=== PATIENT | female | born 1960 | race Caucasian/White ===

== ENCOUNTER → 2020-04-14 11:07 | Outpatient (BNVA) | payer MEDICARE, MEDICAID, SELFPAY | PROVIDERS: PCP Internal Medicine Geriatric Medicine; Referring Provider Internal Medicine Geriatric Medicine; Visit Provider Nurse Practitioner | DX: Z13.89 Encounter for screening for other disorder (principal) | CPT/HCPCS: Q3014 ==

== ENCOUNTER 2020-06-06 14:21 | Outpatient (REF) | payer OTHER, SELFPAY ==
--- NOTE | ~2020-06-06 | MM_ITS ---
EXAMINATION: MM SCREENING DIGITAL BREAST TOMOSYNTHESIS, BILATERAL CLINICAL INFORMATION: Screening. Asymptomatic. The lifetime risk of breast cancer based on the Tyrer-Cuzick Model is 10%. COMPARISON: Mammography: 03/12/2019, 03/03/2018, 02/20/2017 TECHNIQUE: Digital breast tomosynthesis is performed in both the craniocaudal and mediolateral oblique views along with computer-aided detection (CAD). Synthesized 2D images are generated from the tomosynthesis. FINDINGS: There are scattered areas of fibroglandular density (ACR BI-RADS breast composition Category b). There are no significant masses, abnormal calcifications, or other abnormalities. Parenchymal pattern is similar to prior studies. No developing density. No significant changes. MM/MM tomosynthesis screening BI IMPRESSION: No mammographic evidence of malignancy. ASSESSMENT: BI-RADS 1: Negative RECOMMENDATION: Routine annual mammography screening. This patient's information was entered into a reminder system with a target due date for their next mammogram.
== END 2020-06-06 14:22 | disposition home or self-care (01) ==
LOC: HO.MAMMO 14:21
PROVIDERS: PCP Internal Medicine; Visit Provider Internal Medicine
DX: Z12.31 Encounter for screening mammogram for malignant neoplasm of breast (principal)
CPT/HCPCS: 77063; 77067

== ENCOUNTER 2020-07-13 13:55 | Outpatient (REF) | payer OTHER, SELFPAY ==
--- NOTE | ~2020-07-13 | US_ITS ---
EXAMINATION: US CHEST CLINICAL INFORMATION: Swelling, mass, lump of the trunk. COMPARISON: None. TECHNIQUE: Limited imaging through the left anterolateral chest wall is performed. FINDINGS: Limited imaging to the left anterolateral chest wall was performed that patient feels a lump. On imaging there is no visible soft tissue density similar to fat but no increased vascularity. Similar findings are seen on the contralateral side in the same area along the right anterolateral chest wall. This is most likely a small lipoma or fatty collection. US/US chest IMPRESSION: Possible lesion along the left anterolateral chest wall is most likely a lipoma. Similar findings are seen on the right side as well.
== END 2020-07-13 13:56 | disposition home or self-care (01) ==
LOC: HO.US 13:55
PROVIDERS: Visit Provider Emergency Medicine
DX: Z13.89 Encounter for screening for other disorder (principal)
CPT/HCPCS: 76604

== ENCOUNTER → 2020-11-04 14:01 | Outpatient (BNVA) | payer OTHER, SELFPAY | PROVIDERS: PCP Internal Medicine; Visit Provider Nurse Practitioner | DX: K21.9 Gastro-esophageal reflux disease without esophagitis (principal); K59.00 Constipation, unspecified; R14.0 Abdominal distension (gaseous) | CPT/HCPCS: Q3014 ==

== ENCOUNTER → 2021-05-08 13:56 | Outpatient (BNVA) | payer OTHER, SELFPAY | PROVIDERS: PCP Internal Medicine; Referring Provider Internal Medicine; Visit Provider Nurse Practitioner | DX: K59.00 Constipation, unspecified (principal); K14.0 Glossitis; K21.9 Gastro-esophageal reflux disease without esophagitis | CPT/HCPCS: 99212 ==

== ENCOUNTER 2021-06-13 09:44 | Outpatient (REF) | payer OTHER, SELFPAY ==
--- NOTE | ~2021-06-13 | MM_ITS ---
EXAMINATION: MM SCREENING DIGITAL BREAST TOMOSYNTHESIS, BILATERAL CLINICAL INFORMATION: Screening. Asymptomatic. The lifetime risk of breast cancer based on the Tyrer-Cuzick Model is 10%. COMPARISON: Mammography: 06/06/2020, 03/12/2019, 03/03/2018 TECHNIQUE: Digital breast tomosynthesis is performed in both the craniocaudal and mediolateral oblique views along with computer-aided detection (CAD). Synthesized 2D images are generated from the tomosynthesis. FINDINGS: There are scattered areas of fibroglandular density (ACR BI-RADS breast composition Category b). There are no significant masses, abnormal calcifications, or other abnormalities. There is no architectural abnormality or developing density. The axilla and skin contours are unremarkable. No significant changes from prior studies. MM/MM tomosynthesis screening BI IMPRESSION: No mammographic evidence of malignancy. ASSESSMENT: BI-RADS 1: Negative RECOMMENDATION: Routine annual mammography screening. This patient's information was entered into a reminder system with a target due date for their next mammogram.
== END 2021-06-13 09:45 | disposition home or self-care (01) ==
LOC: HO.MAMMO 09:44
PROVIDERS: PCP Internal Medicine; Visit Provider Internal Medicine
DX: Z12.31 Encounter for screening mammogram for malignant neoplasm of breast (principal)
CPT/HCPCS: 77063; 77067

== ENCOUNTER → 2021-12-13 14:33 | Outpatient (BNVA) | payer OTHER, SELFPAY | PROVIDERS: PCP Internal Medicine; Referring Provider Internal Medicine; Visit Provider Nurse Practitioner | DX: K21.9 Gastro-esophageal reflux disease without esophagitis (principal); K59.00 Constipation, unspecified; R14.0 Abdominal distension (gaseous); E11.9 Type 2 diabetes mellitus without complications; Z79.84 Long term (current) use of oral hypoglycemic drugs | CPT/HCPCS: 99212 ==

== ENCOUNTER 2022-06-27 14:44 | Outpatient (REF) | payer OTHER, SELFPAY ==
--- NOTE | ~2022-06-27 | MM_ITS ---
EXAMINATION: MM SCREENING DIGITAL BREAST TOMOSYNTHESIS, BILATERAL CLINICAL INFORMATION: Screening. Asymptomatic. The lifetime risk of breast cancer based on the Tyrer-Cuzick Model is 9.7%. COMPARISON: Mammography: June 13, 2021 and studies dating back to February 14, 2015 TECHNIQUE: Digital breast tomosynthesis is performed in both the craniocaudal and mediolateral oblique views along with computer-aided detection (CAD). Synthesized 2D images are generated from the tomosynthesis. FINDINGS: There are scattered areas of fibroglandular density (ACR BI-RADS breast composition Category b). There are no significant masses, abnormal calcifications, or other abnormalities. MM/MM tomosynthesis screening BI IMPRESSION: No significant changes ASSESSMENT: BI-RADS 1: Negative RECOMMENDATION: Routine annual mammography screening. This patient's information was entered into a reminder system with a target due date for their next mammogram.
== END 2022-06-27 14:45 | disposition home or self-care (01) ==
LOC: HO.MAMMO 14:44
PROVIDERS: PCP Internal Medicine; Visit Provider Internal Medicine
DX: Z12.31 Encounter for screening mammogram for malignant neoplasm of breast (principal)
CPT/HCPCS: 77063; 77067

== ENCOUNTER → 2022-07-26 13:45 | Outpatient (BNVA) | payer OTHER, SELFPAY | PROVIDERS: PCP Internal Medicine; Visit Provider Nurse Practitioner | DX: K21.9 Gastro-esophageal reflux disease without esophagitis (principal); K59.00 Constipation, unspecified; R14.0 Abdominal distension (gaseous) | CPT/HCPCS: 99212 ==

== ENCOUNTER 2022-11-29 08:56 | Outpatient (REF) | payer OTHER, SELFPAY ==
[2022-11-29 11:21] LABS: MANUAL DIFF FLAG NO
[2022-11-29 12:01] LABS: Basophils Absolute Auto 0.1 X10*3/uL (0.0-0.2); Basophils Percent Auto 0.9 % (0-2); Eosinophils Absolute Auto 0.1 X10*3/uL (0.0-0.4); Eosinophils Percent Auto 1.7 % (0-4); Hematocrit 37.5 % (37.0-47.0); Hemoglobin 12.4 g/dl (12.0-16.0); Imm Gran Abs Auto 0.01 X10*3/uL (0.00-0.03); Imm Gran Pct Auto 0.2 % (0.0-0.4); Lymphocytes Absolute Auto 1.2 X10*3/uL (1.2-4.9); Lymphocytes Percent Auto 23.4 % (20-40); Mean Corpuscular HGB Conc 33.1 g/dl (31.0-35.0); Mean Corpuscular Hemoglobin 31.2 pg (27.0-33.0); Mean Corpuscular Volume 94.2 fL (80.0-98.0); Mean Platelet Volume 9.4 fL (9.4-12.3); Monocytes Absolute Auto 0.4 X10*3/uL (0.1-1.2); Monocytes Percent Auto 7.2 % (2-11); Neutrophils Absolute Auto 3.5 x10*3/uL (2.0-8.3); Neutrophils Percent Auto 66.6 % (45-73); Platelet Count 288 X10*3/uL (160-400); Red Blood Count 3.98 X10*6/uL (4.20-5.50); Red Cell Distribution Width 13.2 % (11.0-16.0); White Blood Count 5.3 X10*3/uL (4.8-10.8)
[2022-11-29 12:08] LABS: Estimated Average Glucose 117 mg/dL; Hemoglobin A1c % 5.7 %
[2022-11-29 12:38] LABS: Alanine Aminotransferase 12 U/L (0-31); Albumin Level 4.3 g/dL (3.5-5.0); Alkaline Phosphatase 73 U/L (39-117); Anion Gap 12 (12-20); Aspartate Amino Transferase 13 U/L (5-31); Bilirubin Direct 0.1 mg/dL (0.0-0.5); Bilirubin Total 0.3 mg/dL (0.0-1.0); Blood Urea Nitrogen 14 mg/dL (9-16); Calcium 9.7 mg/dL (8.4-10.2); Carbon Dioxide 27 mmol/L (22-29); Chloride 107 mmol/L (96-108); Cholesterol 185 mg/dL; Estimated Glomerular Filt Rate > 60; Glucose Random 97 mg/dL (60-115); HDL Cholesterol 71 mg/dL; LDL Cholesterol Calculated 99 mg/dl; Potassium 4.3 mmol/L (3.3-5.1); Sodium 142 mmol/L (135-145); Total Protein 7.6 g/dL (6.5-8.0); Triglycerides 75 mg/dL
== END 2022-11-29 08:57 | disposition home or self-care (01) ==
LOC: HO.HHCL 08:56
PROVIDERS: Visit Provider Internal Medicine
DX: R73.03 Prediabetes (principal); K21.9 Gastro-esophageal reflux disease without esophagitis; E55.9 Vitamin D deficiency, unspecified; Z00.00 Encounter for general adult medical examination without abnormal findings
CPT/HCPCS: 36415; 80048; 80061; 80076; 83036; 85025

== ENCOUNTER 2022-12-06 14:50 | Outpatient (REF) | payer OTHER, SELFPAY ==
--- NOTE | ~2022-12-06 | XR_ITS ---
EXAMINATION: XR KNEE, RIGHT CLINICAL INFORMATION: Pain COMPARISON: None available. TECHNIQUE: Four views of the right knee. FINDINGS: No fracture or joint effusion. Alignment is anatomic. Joint spaces are maintained. No abnormal soft tissue calcification. XR/XR knee RT 3V IMPRESSION: Normal right knee.
== END 2022-12-06 14:51 | disposition home or self-care (01) ==
LOC: HO.HHCX 14:50
PROVIDERS: Visit Provider Internal Medicine
DX: M25.561 Pain in right knee (principal); G89.29 Other chronic pain
CPT/HCPCS: 73562

== ENCOUNTER 2023-03-29 14:11 | Outpatient (AMB) | payer OTHER, SELFPAY ==
--- NOTE | 2023-03-29 14:15 | A.OFFVIS_ITS ---
Intake Vital Signs 03/29/23 14:34 Height 5 ft 7 in Weight 171 lb 1.259 oz BMI 26.8 BP 128/62 Blood Pressure Location Rt brachial Position Sitting Pulse 77 Intake Visit Reasons: 6 month follow up Gerd, IBS Intake Note: Patient presents to in office 6 months follow up of GERD and IBS. CC: Patient reports having occasional constipation, and feeling the same. Denies any new GI symptoms or concerns. [employer] Required: Yes Accompanied by: Self / Same As Patient Allergies No Known Allergies [No Known Allergies*] Allergy (Verified 07/26/22 14:09) HPI 6 month follow up Gerd, IBS HPI Details Assessment & Plan (1) GERD (gastroesophageal reflux diseas e): Code(s): K21.9 - Gastro-esophageal reflux disease without esophagitis Plan: Candy #Sheila hendrickson She continues to do well on her famotidine, simethicone and bisacodyl. She is uncertain how her new diagnosis of diabetes is going because she has not followed up yet to find out what her lab results are. She feels that she is doing well with diet and exercise, however. She has no new medical conditions to report. Return office visit in 6 months (2) Constipation: Code(s): K59.00 - Constipation, unspecified (3) Abdominal bloating: Code(s): R14.0 - Abdominal distension (gaseous) Medications: Refilled bisacodyl (Dulcola x (bisacodyl)) 10 mg (2 x 5 mg) P O BEDTIME 30 days 60 tabs 6RF K21.9 - Gastro-eso phageal reflux dis ease without esoph agitis, K59.00 - C onstipation, unspe cified famotidine 20 mg PO DAILY 30 days 30 tabs 6RF K21.9 - Gastro-eso phageal reflux dis ease without esoph agitis simethicone aft er meals 180 mg PO QID 30 days 120 caps 6RF R14.0 - Abdominal distension (gaseou s) TODAY'S VISIT [facility] #[id number] She continues to do well on her famotidine, simethicone and bisacodyl. At time she has no complaints and is happy with her GI regimen. Return office visit in 6 months [facility] Surgical History Hx of colonoscopy Hx of tonsillectomy Family History Father Family hx of prostate cancer Hx of cardiac arrest Mother Hx of primary hypertension Social History Alcohol intake: current Alcohol intake frequency: holidays/special occasions only Alcohol type: wine Patient Tobacco Use Status: Never used Tobacco Review of Systems Const Denies fatigue, Denies fever(s), Denies night sweats, Denies poor appetite and Denies weight loss ENT Reports Normal hearing present, Denies dental pain, Denies dysphagia, Denies hearing loss, Denies mouth pain, Denies odynophagia, Denies throat swelling, Denies tongue swelling and Reports other (Dentition adequate) Card Reports no additional complaints Resp Reports no additional complaints GI Denies abdominal pain, Denies melena, Denies bloating, Denies hematochezia, Reports constipation, Denies GI cramping, Denies dysphagia, Denies excessive flatus, Denies early satiety, Reports heartburn, Denies diarrhea, Denies nausea, Denies odynophagia, Denies vomiting and Denies hematemesis Skin/Breast Denies pruritus, Denies lesions, Denies rash and Denies jaundice Neuro Reports Normal hearing present and Denies Abnormal speech present Endo Denies fatigue Aller/Immun Denies throat swelling and Denies tongue swelling Physical Exam Vital Signs: Last Vital Signs Pulse 77 03/29/23 14:34 BP 128/62 03/29/23 14:34 BMI result Body Mass Index 26.8 Const General: cooperative, no acute distress, well developed and well groomed Nutritional Appearance: average body habitus and well nourished Orientation/consciousness: oriented to person, oriented to place and oriented to time Limitations: language barrier HEENT Head: Yes normocephalic and Yes atraumatic Eyes General: appearance normal, both eyes and all related structures Pupils: Equal, round and reactive pupils present Neck Neck: Yes normal visual inspection and Yes no lymphadenopathy Thyroid: Thyroid normal Resp Effort & Inspection: normal respiratory effort and able to speak in complete sentences Auscultation: clear to auscultation bilaterally Cardio Rate: regular rate Rhythm: regular rhythm Heart sounds: Normal, physiologic split S2 sound present Peripheral pulses: radial pulses present and posterior tibial pulses present GI Inspection: No distended and No Abdominal panniculus present Palpation (GI): Soft to palpation, nontender, no guarding, not rigid and No hepatosplenomegaly present Percussion: Yes normal to percussion Auscultation: normal bowel sounds Rectal Exam - Female: deferred Skin General skin exam: no rashes or lesions noted, turgor normal, skin not dry, no jaundice, No spider nevi and no striae Rashes: no rashes Nails: normal Neuro General: oriented to person, oriented to place and oriented to time Cranial nerves: Yes Equal, round and reactive pupils present and Yes Normal hearing present Speech: No Abnormal speech present Extrem General: Yes normal to inspection, No clubbing, No cyanosis and No edema Psych Appearance: grossly normal and well kempt Mental Status: mental status grossly normal Speech and movement: Normal speech and movement present Affect: normal affect Attitude: cooperative Thought process: Normal thought process present and not confabulating Thought content: Normal thought content present Insight: Fair insight present (Psych) Judgement: Fair judgement present (Psych) Assessment & Plan Assessment & Plan (1) GERD (gastroesophageal reflux disease): Code(s): K21.9 - Gastro-esophageal reflux disease without esophagitis (2) Constipation: Code(s): K59.00 - Constipation, unspecified (3) Abdominal bloating: Code(s): R14.0 - Abdominal distension (gaseous) Plan [facility] #[id number] She continues to do well on her famotidine, simethicone and bisacodyl. At time she has no complaints and is happy with her GI regimen. Return office visit in 6 months Medications: Refilled simethicone after meals 180 mg PO QID 30 days 120 caps 6RF R14.0 - Abdominal distension (gaseous) famotidine 20 mg PO DAILY 30 days 30 tabs 6RF K21.9 - Gastro-esophageal reflux disease without esophagitis bisacodyl (Dulcolax (bisacodyl)) 10 mg (2 x 5 mg) PO BEDTIME 30 days 60 tabs 6RF K21.9 - Gastro-esophageal reflux disease without esophagitis, K59.00 - Constipation, unspecified Coding Level of Care Code Est Pt Level 3 (78372) Diagnoses GERD (gastroesophageal reflux disease) K21.9 Constipation K59.00 Abdominal bloating R14.0
[2023-03-29 14:34] VITALS: BP 128/62; PULSE 77; BMI 26.8
== END 2023-03-29 15:06 | disposition home or self-care (01) ==
PROVIDERS: Visit Provider Nurse Practitioner
DX: K21.9 Gastro-esophageal reflux disease without esophagitis (principal); K59.00 Constipation, unspecified; R14.0 Abdominal distension (gaseous)
CPT/HCPCS: 99213

== ENCOUNTER → 2023-03-29 14:11 | Outpatient (BNVA) | payer OTHER, SELFPAY | PROVIDERS: Visit Provider Nurse Practitioner | DX: K21.9 Gastro-esophageal reflux disease without esophagitis (principal); K59.00 Constipation, unspecified; R14.0 Abdominal distension (gaseous) | CPT/HCPCS: 99212 ==

== ENCOUNTER 2023-07-03 08:13 | Outpatient (REF) | payer OTHER, SELFPAY | END 2023-07-03 08:14 | disposition home or self-care (01) | LOC: HO.MAMMO 08:13 | PROVIDERS: PCP Internal Medicine; Visit Provider Internal Medicine | DX: Z12.31 Encounter for screening mammogram for malignant neoplasm of breast (principal) | CPT/HCPCS: 77063; 77067 ==

== ENCOUNTER → 2023-07-03 08:30 | Outpatient (BNV) | payer OTHER, SELFPAY | PROVIDERS: PCP Internal Medicine; Visit Provider Radiology Diagnostic Radiology | DX: Z12.31 Encounter for screening mammogram for malignant neoplasm of breast (principal) | CPT/HCPCS: 77063; 77067 ==

== ENCOUNTER 2023-09-27 14:54 | Outpatient (AMB) | payer OTHER, SELFPAY ==
--- NOTE | 2023-09-27 14:56 | A.OFFVIS_ITS ---
Vital Signs 09/27/23 15:03 Height 5 ft 7 in Weight 173 lb 4.533 oz BMI 27.1 BP 114/60 Blood Pressure Location Lt brachial Position Sitting Pulse 86 Pulse Source Pulse Oximeter Pulse Oximetry (%) 96 Oxygen Delivery Method Room Air Intake Visit Reasons: GERD, CIC - 6 month f/u Intake Note: Pamela presents in office today for a 6 mos scheduled FUV. CC: Pt reports that they are feeling OK, pt denies any new concerns or sx. Pt does report however that they are still experiencing some of their chronic sx. Pt is unable to elaborate further on this at this time. Oil Transport Driver Required: Yes Oil Transport Driver Name: [id number] Rosy Allergies No Known Allergies [No Known Allergies*] Allergy (Verified 09/27/23 15:03) HPI HPI GERD, CIC - 6 month f/u: Details: Assessment & Plan (1) GERD (gastroesophageal reflux disease): Code(s): K21.9 - Gastro-esophageal reflux disease without esophagitis (2) Constipation: Code(s): K59.00 - Constipation, unspecified (3) Abdominal bloating: Code(s): R14.0 - Abdominal distension (gaseous) Plan [facility] #[id number] She continues to do well on her famotidine, simethicone and bisacodyl. At time she has no complaints and is happy with her GI regimen. Return office visit in 6 months Medications: Refilled simethicone after meals 180 mg PO QID 30 days 120 caps 6RF R14.0 - Abdominal distension (gaseous) famotidine 20 mg PO DAILY 30 days 30 tabs 6RF K21.9 - Gastro-esophageal reflux disease without esophagitis bisacodyl (Dulcolax (bisacodyl)) 10 mg (2 x 5 mg) PO BEDTIME 30 days 60 tabs 6RF K21.9 - Gastro-esophageal reflux disease without esophagitis, K59.00 - Constipation, unspecified TODAY'S VISIT [facility] #[facility] Live She continues to do well on her famotidine, simethicone and bisacodyl. At time she has no complaints and is happy with her GI regimen. Return office visit in 6 month [facility] Surgical History (Updated 09/27/23 @ 15:12 by JOYCELYN Mccray) Hx of colonoscopy Hx of tonsillectomy Family History Father Family hx of prostate cancer Hx of cardiac arrest Mother Hx of primary hypertension Social History Alcohol intake: current Alcohol intake frequency: holidays/special occasions only Alcohol type: wine Patient Tobacco Use Status: Never used Tobacco Review of Systems Const Denies fatigue, Denies fever(s), Denies night sweats, Denies poor appetite and Denies weight loss Eyes Details: glasses Reports requires corrective lenses ENT Reports Normal hearing present, Denies dental pain, Denies dysphagia, Denies hearing loss, Denies mouth pain, Denies odynophagia, Denies throat swelling, Denies tongue swelling and Reports other (Dentition adequate) Card Reports no additional complaints Resp Reports no additional complaints GI Details: Denies abdominal pain, Denies melena, Reports bloating, Denies hematochezia, Reports constipation, Denies GI cramping, Denies dysphagia, Denies excessive flatus, Denies early satiety, Reports heartburn, Denies diarrhea, Denies nausea, Denies odynophagia, Denies vomiting and Denies hematemesis Skin/Breast Denies pruritus, Denies lesions, Denies rash and Denies jaundice Neuro Reports Normal hearing present and Denies Abnormal speech present Endo Denies fatigue Aller/Immun Denies throat swelling and Denies tongue swelling Physical Exam Vital Signs: Last Vital Signs Pulse 86 09/27/23 15:03 BP 114/60 09/27/23 15:03 Pulse Ox 96 09/27/23 15:03 Oxygen Delivery Method Room Air 09/27/23 15:03 BMI result Body Mass Index 27.1 Const General: cooperative, no acute distress, well developed and well groomed Nutritional Appearance: average body habitus and well nourished Orientation/consciousness: oriented to person, oriented to place and oriented to time Limitations: language barrier HEENT Head: Yes normocephalic and Yes atraumatic Eyes General: appearance normal, both eyes and all related structures Pupils: Equal, round and reactive pupils present Neck Neck: Yes normal visual inspection and Yes no lymphadenopathy Thyroid: Thyroid normal Resp Effort & Inspection: normal respiratory effort and able to speak in complete sentences Auscultation: clear to auscultation bilaterally Cardio Rate: regular rate Rhythm: regular rhythm Heart sounds: Normal, physiologic split S2 sound present Peripheral pulses: radial pulses present and posterior tibial pulses present GI Inspection: No distended and No Abdominal panniculus present Palpation (GI): Soft to palpation, nontender, no guarding, not rigid and No hepatosplenomegaly present Percussion: Yes normal to percussion Auscultation: normal bowel sounds Rectal Exam - Female: deferred Skin General skin exam: no rashes or lesions noted, turgor normal, skin not dry, no jaundice, No spider nevi and no striae Rashes: no rashes Nails: normal Neuro General: oriented to person, oriented to place and oriented to time Cranial nerves: Yes Equal, round and reactive pupils present and Yes Normal hearing present Speech: No Abnormal speech present Extrem General: Yes normal to inspection, No clubbing, No cyanosis and No edema Psych Appearance: grossly normal and well kempt Mental Status: mental status grossly normal Speech and movement: Normal speech and movement present Affect: normal affect Attitude: cooperative Thought process: Normal thought process present and not confabulating Thought content: Normal thought content present Insight: Fair insight present (Psych) Judgement: Fair judgement present (Psych) Assessment & Plan Assessment & Plan (1) GERD (gastroesophageal reflux disease): Code(s): K21.9 - Gastro-esophageal reflux disease without esophagitis Category: Medical (2) Constipation: Code(s): K59.00 - Constipation, unspecified Category: Medical (3) Abdominal bloating: Code(s): R14.0 - Abdominal distension (gaseous) Category: Medical Plan [facility] #[facility] Live She continues to do well on her famotidine, simethicone and bisacodyl. At time she has no complaints and is happy with her GI regimen. Return office visit in 6 month Coding Level of Care Code Est Pt Level 3 (66629) Diagnoses GERD (gastroesophageal reflux disease) K21.9 Constipation K59.00 Abdominal bloating R14.0
[2023-09-27 15:03] VITALS: BP 114/60; PULSE 86; O2SAT 96; BMI 27.1
== END 2023-09-27 15:18 | disposition home or self-care (01) ==
PROVIDERS: PCP Internal Medicine; Visit Provider Nurse Practitioner
DX: K21.9 Gastro-esophageal reflux disease without esophagitis (principal); K59.00 Constipation, unspecified; R14.0 Abdominal distension (gaseous)
CPT/HCPCS: 99213

== ENCOUNTER → 2023-09-27 14:54 | Outpatient (BNVA) | payer OTHER, SELFPAY | PROVIDERS: PCP Internal Medicine; Visit Provider Nurse Practitioner | DX: K21.9 Gastro-esophageal reflux disease without esophagitis (principal); K59.04 Chronic idiopathic constipation; R14.0 Abdominal distension (gaseous) | CPT/HCPCS: 99212 ==

== ENCOUNTER 2024-06-03 11:48 | Outpatient (REF) | payer OTHER, SELFPAY ==
--- OUTSIDE RECORDS SUMMARY | 2024-06-03 13:40 | XMS_ITS | Encounter Summary ---
Author Organization [employer] [facility] Address [address] [place] [address] Care Team Providers Care Legal Analyst Name Role Phone Deepti Lowry MD Primary Care Provide r Encounter Details Date Type Department Care Team (Latest Contact Info) Description 10/01/2018 Abstract [facility] CONVERSIONS Dental, Provider, DDS Social History Tobacco Use Types Packs/Day Years Used Date Smoking Tobacco: Never Assessed Comments Unknown Sex and Gender Information Value Date Recorded Sex Assigned at Female 02/19/2022 10:32 AM EDT Legal Sex Female 10:32 AM EDT Gender Identity Female 02/19/2022 10:32 AM EDT Sexual Orientation Straight 02/19/2022 10 :32 AM EDT documented as of this encounter Plan of Treatment Upcoming Encounters Date Type Department Care Team (Late st Contact Info) Description 06/11/2024 11:00 AM EST Office Visit [facility] OPTOMETRY [address] [place], [place] [phone] Kenyatta Mitchell, OD [address] [place] [address] 09/23/2024 10:00 AM EDT Office Visit [facility] [address] [place], [place] [phone] Kiet Sarah [address] [place], [place] [phone] documented as of this encounter Visit Diagnoses Not on filedocumented in this encounter Care Teams Legal Analyst Relationship Specialty Start Date End Date Deepti Lowry MD [address] [place] [address] PCP - General Family Medicine 07/25/20 documented as of this encounter
--- OUTSIDE RECORDS SUMMARY | 2024-06-03 13:40 | XMS_ITS | Encounter Summary ---
Author Organization [employer] Address [address] [place] [address] Care Team Providers Care Assisted Living Care Manager Name Role Phone Deepti Lowry MD Primary Care Provide r Reason for Visit * Reason Comments Med Refill Encounter Details Date Type Department Care Team ([facility] st Contact Info) Description 01/06/2024 Refill [facility] MEDICINE [address], [place] [phone] Deepti Lowry MD [address] [place], [place] [phone] Mild depression Social History Tobacco Use Types Packs/Day Years Used Date Smoking Tobacco: Never Passive Smoke Exposure: Never Smokeless Tobacco: Never Depression Answer Date Recorded Patient Health Questionnaire-9 Score 6 12/06/2022 Housing Stability Answer Date Recorded What is your housing situation today? I have tammie ochoa 02/18/[address] you li ve. Do you have problems with any of the following? None of the above 02/18/2023 Food Insecurity Answer Date Recorded Within the past 12 months, y ou worried that your food would run out before you got money to buy more: Never True 02/18/2023 Within the past 12 months,th e food you bought just didn't last and you didn't have enough money to get more: Never True Transportation Answer Date Recorded In the past 12 months, has l ack of transportation kept you from medical appts, meetings, work or from getting things needed for daily living? No 02/18/2023 Utilities Answer Date Recorded In the past 12 months, has t he electric, gas, oil or water company threatened to shut off services in your home? No 02/18/2023 Depression Answer Date Recorded Patient Health Questionnaire-2 Score 2 12/06/2022 Comments Unknown Sex and Gender Information Value [...] Description 06/11/2024 11:00 AM EST Office Visit [facility] OPTOMETRY [address] [place], [place] [phone] StephenKenyatta beck, OD [address] [place] [address] 09/23/2024 10:00 AM EDT Office Visit [facility] [address] [place] [address] Kiet Sarah [address] [place] [address] documented as of this encounter Visit Diagnoses Diagnosis Mild depression Depressive disorder, not elsewhere classified documented in this encounter Additional Health Concerns Assessment Noted Time PHQ-9 Depression Total Score: 6 12/07/19 23 1:23 PM EDT documented as of this encounter Care Teams Assisted Living Care Manager Relationship Specialty Start Date End Date Deepti Lowry MD [address] [place] [address] PCP - General Family Medicine 07/25/20 documented as of this encounter
--- OUTSIDE RECORDS SUMMARY | 2024-06-03 13:40 | XMS_ITS | Encounter Summary ---
Author Organization [employer] [facility] Address [address] [place] [address] Care Team Providers Care Bin Cleaner Name Role Phone Deepti Lowry MD Primary Care Provide r Encounter Details Date Type Department Care Team (Latest Contact Info) Description 03/03/2021 Abstract [facility] CONVERSIONS Dental, Provider, DDS Social History [...] Description 06/11/2024 11:00 AM EST Office Visit [facility] OPTOMETRY [address] [place], [place] [phone] Kenyatta Mitchell, OD [address] [place] [address] 09/23/2024 10:00 AM EDT Office Visit [facility] [address] [place], [place] [phone] Narciso Santaine [address] [place], [place] [phone] documented as of this encounter Visit Diagnoses Not on filedocumented in this encounter Care Teams Bin Cleaner Relationship Specialty Start Date End Date Deepti Lowry MD [address] [place] [address] PCP - General Family Medicine 07/25/20 documented as of this encounter
--- OUTSIDE RECORDS SUMMARY | 2024-06-03 13:40 | XMS_ITS | Encounter Summary ---
Author Organization [employer] Address [address] [place] [address] Care Team Providers Care Chemical Machine Tender Name Role Phone Deepti Lowry MD Primary Care Provide r Reason for Visit * Reason Onset Date Comments Chart Prep 05/27/2024 Encounter Details Date Type Department Care Team ([facility] st Contact Info) Description 05/27/2024 Telephone [facility] [address] [place], [place] [phone] Loly Calvillo MA Chart Prep Social History Tobacco Use Types Packs/Day Years Used Date Smoking Tobacco: Never Passive Smoke Exposure: Never Smokeless Tobacco: Never Alcohol Use Standard Drinks/Week Comments Never 0 (1 standard drink = 0.6 oz pur e alcohol) Depression Answer Date Recorded Patient Health Questionnaire-9 Score 6 12/06/2022 Housing Stability Answer Date Recorded What is your housing situation today? I have tammiekarson ochoa 02/18/[address] you [...] Answer Date Recorded Patient Health Questionnaire-2 Score 3 02/25/2024 Comments Unknown Sex and Gender Information Value Date Recorded Sex Assigned at Female 02/19/2022 10:32 AM EDT Legal Sex Female 10:32 AM EDT Gender Identity Female 02/19/2022 10:32 AM EDT Sexual Orientation Straight 02/19/2022 10 :32 AM EDT documented as of this encounter Miscellaneous Notes * Telephone Encounter - Loly Calvillo MA - 05/27/2024 1:40 PM EST Chart Prep Labs: done Images: done Vaccines due: yes Referrals: pending appt Screenings: mammogram Overdue care gaps: Sbirt, TODD-7 documented in this encounter Plan of Treatment Upcoming Encounters Date Type Department Care Team (Late st Contact Info) Description 06/11/2024 11:00 AM EST Office Visit [facility] [address] [place] [address] Stephen, Kenyatta, OD [address] [place] [address] 09/23/2024 10:00 AM EDT Office Visit [facility] [address] [place], [place] [phone] Kiet Sarah [address] [place] [address] documented as of this encounter Visit Diagnoses Not on filedocumented in this encounter Additional Health Concerns Assessment Noted Time PHQ-9 Depression Total Score: 6 12/07/19 23 1:23 PM EDT documented as of this encounter Care Teams Chemical Machine Tender Relationship Specialty Start Date End Date Deepti Lowry MD [address] [place] [address] PCP - General Family Medicine 07/25/20 documented as of this encounter
--- OUTSIDE RECORDS SUMMARY | 2024-06-03 13:40 | XMS_ITS | Encounter Summary ---
Author Organization [employer] Address [address] [place] [address] Care Team Providers Care Ruling Machine Feeder Name Role Phone Deepti Lowry MD Primary Care Provide r Reason for Visit * Reason Comments Scaling And Root Planing Encounter Details Date Type Department Care Team (Late st Contact Info) Description 05/27/2024 2:00 PM EST Office Visit [facility] [address] [place], [place] [phone] Sarah Santa [address] [place], [place] [phone] Social History Tobacco Use Types Packs/Day Years [...] t he electric, gas, oil or water wooju threatened to shut off services in your home? No 02/18/2023 Depression Answer Date Recorded Patient Health Questionnaire-2 Score 3 02/25/2024 Comments Unknown Sex and Gender Information Value Date Recorded Sex Assigned at Female 02/19/2022 10:32 AM EDT Legal Sex Female 10:32 AM EDT Gender Identity Female 02/19/2022 10:32 AM EDT Sexual Orientation Straight 02/19/2022 10 :32 AM EDT documented as of this encounter Last Filed Vital Signs Vital Sign Reading Time Taken Comments Blood Pressure 116/62 05/27/2024 2:03 PM EST Pulse 79 05/27/2024 2:03 PM EST Temperature - - Respiratory Rate - - Oxygen Saturation - - Inhaled Oxygen Concentration - - Weight - - Height - - Body Mass Index - - documented in this encounter Progress Notes * Sarah Santa - 05/27/2024 2:00 PM EST Patient ID: Pamela Chávez is a 64 y.o. female. Time Out: Date: 05/27/2024 Location: [facility]: UL/LL Procedure: Scaling and Root Planing Verified the above with patient, accounting manager assistant controller, and provider. Confirmed via patient's chart, intraorally and by radiographs. Barrel Washer Machine: not applicable Treatment Provided Dental procedures in this visit D4341 - PERIODONTAL SCALING AND ROOT PLANING - 4 OR MORE TEETH PER QUADRANT UL (Completed) Service provider: Sarah Vernon provider: Vlad Sotelo DDS D4341 - PERIODONTAL SCALING AND ROOT PLANING - 4 OR MORE TEETH PER QUADRANT LL (Completed) Service provider: Sarah Vernon provider: Vlad Sotelo DDS D9450 - ADJUNCTIVE GENERAL SERVICES - PROFESSIONAL VISITS - CASE PRESENTATION, SUBSEQUENT TO DETAILED AND EXTENSIVE TREATMENT PLANNING (Completed) Service provider: Sarah Vernon provider: Vlad Sotelo DDS Instruments Used: Ultrasonic Scalers and Hand Scalers Calculus: Light-mod Plaque: Light Stain: Light Bleeding: Moderate Gingiva: inflamed OH: Fair OCS: neg findings HNE: neg findings Oral hygiene instructions provided to patient including brushing technique and flossing. Recommendations: Floss daily Recall Frequency: 6 mo NV: Hygienist: Sarah Santa RD documented in this encounter Plan of Treatment Upcoming Encounters Date Type Department Care Team (Late st Contact Info) Description 06/11/2024 11:00 AM EST Office Visit [facility] OPT[facility] [address] [place] [address] Tsephen, Kenyatta, OD [address] [place] [address] 09/23/2024 10:00 AM EDT Office Visit [facility] [address] [place] [phone] Sarah Santa [address] [place], [place] [phone] documented as of this encounter Procedures Procedure Name Priority Date/Time Associated Diagnosis Comments LL PERIODONTAL SCALING AND ROOT PLANING - 4 OR MORE TEETH PER QUADRANT Routine 05/27/2024 2:00 PM EST UL PERIODONTAL SCALING AND ROOT PLANING - 4 OR MORE TEETH PER QUADRANT Routine 05/27/2024 2:00 PM EST ADJUNCTIVE GENERAL SERVICES - PROFESSIONAL VISITS - CASE PRESENTATION, SUBSEQUENT TO DETAILED AND EXTENSIVE TREATMENT PLANNING Routine 05/27/2024 2:00 PM EST documented in this encounter Visit Diagnoses Not on filedocumented in this encounter Additional Health Concerns Assessment Noted Time PHQ-9 Depression Total Score: 6 12/07/19 23 1:23 PM EDT documented as of this encounter Care Teams Ruling Machine Feeder Relationship Specialty Start Date End Date Deepti Lowry MD [address] [place] [address] PCP - General Family Medicine 07/25/20 documented as of this encounter
--- OUTSIDE RECORDS SUMMARY | 2024-06-03 13:40 | XMS_ITS | Encounter Summary ---
Author Organization [employer] Address [address] [place] [address] Care Team Providers Care Immigration Manager Name Role Phone Deepti Lowry MD Primary Care Provide r Reason for Visit * Reason Onset Date Comments r\s due to weather 05/27/2024 Encounter Details Date Type Department Care Team (Late st Contact Info) Description 05/27/2024 Telephone [facility] [address] [place] [address] Loly Calvillo MA r\s due to weather Social History Tobacco Use Types Packs/Day Years Used Date Smoking Tobacco: Never Passive Smoke Exposure: Never Smokeless Tobacco: Never Alcohol Use Standard Drinks/Week Comments Never 0 (1 standard drink = 0.6 oz pur e alcohol) Depression Answer Date Recorded Patient Health Questionnaire-9 Score 6 12/06/2022 Housing Stability Answer Date Recorded What is your housing situation today? I have tammie ocoha 02/18/[address] you li [...] Encounter - Loly Calvillo MA - 05/27/2024 2:05 PM EST TC- Patient to r\s appt for 05/28/2024 left a voice message informing patient her appt needs to be r\s due to weather. documented in this encounter Plan of Treatment Upcoming Encounters Date Type Department Care Team (Late st Contact Info) Description 06/11/2024 11:00 AM EST Office Visit [facility] OPT[facility] [address] [place] [address] Stephen, Kenyatta, OD [address] [place] [address] 09/23/2024 10:00 AM EDT Office Visit [facility] [address] [place], [place] [phone] Sarah Santa [address] [place] [address] documented as of this encounter Visit Diagnoses Not on filedocumented in this encounter Additional Health Concerns Assessment Noted Time PHQ-9 Depression Total Score: 6 12/07/19 23 1:23 PM EDT documented as of this encounter Care Teams Immigration Manager Relationship Specialty Start Date End Date Deepti Lowry MD [address] [place] [address] PCP - General Family Medicine 07/25/20 documented as of this encounter
--- OUTSIDE RECORDS SUMMARY | 2024-06-03 13:40 | XMS_ITS | Clinical Summary ---
Author Organization [employer] Address [address] [place] [address] Care Team Providers Care Marine Photographer Name Role Phone Deepit Lowry MD Primary Care Provide r Allergies No known active allergies Medications chlorhexidine (Peridex) 0.12 % solution place 1/2 oz in mouth swish for 30 seconds then spit out 2 times per day 06/17/19 20 Active triamcinolone (Kenalog) 0.1 % cream Apply topically every 12 (twelve) hours. 12/09/19 21 Active cholecalciferol (Vitamin D-3) 25 MCG (1000 UT) capsule Take 1 capsule by mouth at bed time. 11/11/19 21 Active Bisacodyl EC 5 MG EC tablet Take 10 mg by mouth at bedtime. 07/27/19 23 Active cetirizine (ZyrTEC) 10 MG tabletIndicatio ns:Seasonal allergies Take 1 tablet (10 mg) by mouth at bedtime. 30 tablet 1 09/18/19 24 Active Simethicone Ultra Strength 180 MG capsuleIndicati ons:Gastroesoph ageal reflux disease, unspecified whether esophagitis present TAKE 1 CAPSULE BY MOUTH FOUR TIMES DAILY AFTER MEALS 90 capsule 2 09/18/19 24 Active metFORMIN (Glucophage) 500 MG tabletIndicatio ns:Prediabetes Take 1 tablet (500 mg) by mouth with breakfast and with evening meal. 180 tablet 2 02/25/20 24 Active famotidine (Pepcid) 20 MG tabletIndicatio ns:Gastroesopha geal reflux disease, unspecified whether esophagitis present Take 1 tablet (20 mg) by mouth Once per day. 60 tablet 3 05/29/19 25 Active sertraline (Zoloft) 25 MG tabletIndicatio ns:Mild depression TAKE 1 TABLET(25 MG) BY MOUTH IN THE MORNING 90 tablet 1 05/29/19 25 Active sertraline (Zoloft) 25 MG tabletIndicatio ns:Mild depression TAKE 1 TABLET(25 MG) BY MOUTH IN THE MORNING 90 tablet 02/25/20 24 025 Discontinued famotidine (Pepcid) 20 MG tabletIndicatio ns:Gastroesopha geal reflux disease, unspecified whether esophagitis present Take 1 tablet (20 mg) by mouth Once per day. 60 tablet 3 02/25/20 24 025 Discontinued(Re order (will not trigger notification to Pharmacy)) sertraline (Zoloft) 25 MG tabletIndicatio ns:Mild depression TAKE 1 TABLET(25 MG) BY MOUTH IN THE MORNING 90 tablet 05/25/19 25 025 Discontinued(Re order (will not trigger notification to Pharmacy)) Active Problems Problem Noted Date Diagnosed Date Face lesion 02/25/2024 Seasonal allergies 09/18/2023 Colon cancer screening 04/04/2023 GERD (gastroesophageal reflux disease) Assessment & Plan (06/01/2024 5:06 PM EST): I advise patient to avoid NSAIDs, spicy and acid food, I advise to eat at the same time every day, I advise to elevate the head of the bed and take medications as prescribe Assessment & Plan (02/25/2024 2:16 PM EST): I advise patient to avoid NSAIDs, spicy and acid food, I advise to eat at the same time every day, I advise to elevate the head of the bed and take medications as prescribe Encounter for preventative adult health care exa mination 12/06/2022 Mild depression 10/16/2022 Assessment & Plan (06/01/2024 5:07 PM EST): Counseling done continue with sertraline 25 mg daily Assessment & Plan (02/25/2024 2:17 PM EST): Counseling done Sertraline refilled Vitamin D deficiency 10/16/2022 Prediabetes 10/16/2022 Assessment & Plan (06/01/2024 5:07 PM EST): Today extensive discussion was done about life style modifications I advise healthy diet (low calorie) and cardiovascular exercise Assessment & Plan (02/25/2024 2:16 PM EST): Today extensive discussion was done about life style modifications I advise healthy diet (low calorie) and cardiovascular exercise Assessment & Plan (09/18/2023 10:09 AM EDT): Today extensive discussion was done about life style modifications I advise healthy diet (low calorie) and cardiovascular exercise Encounter for Papanicolaou s mear for cervical cancer screening 10/16/2022 Assessment & Plan (12/06/2022 2:12 PM EDT): Please see HPI Chronic pain of right knee 10/16/2022 Assessment & Plan (04/04/2023 4:50 PM EST): Acetaminophen PRN Anxiety 03/13/2017 Assessment & Plan (02/25/2024 2:16 PM EST): Counseling done Sertraline refilled Numbness of hand 03/13/2017 Depressive disorder 02/08/2017 Assessment & Plan (04/04/2023 4:51 PM EST): Declines referral to therapist C/w sertraline 25mg daily Foot pain 02/08/2017 Encounters Date Type Department Care Team Description 05/29/2024 1:30 PM EST Office Visit [address] [phone] Deepti Lowry MD Gastroesophageal reflux disease, unspecified whether esophagitis present; Mild depression; Prediabetes; Encounter for immunization 05/29/2024 Travel 05/27/2024 2:00 PM EST Office Visit [facility] [address] [place] [phone] Sarah Rodriguez 05/27/2024 Telephone [facility] [address] [place] [phone] Loly Calvillo MA r\s due to weather 05/27/2024 Telephone [facility] [address] [place] [address] [phone] Loly Calvillo MA Chart Prep 05/23/[address] [phone] Deepti Lowry MD Mild depression 05/20/2024 1:00 PM EST Office Visit [facility] [address] [place] [address] [phone] Sarah Santa 05/18/2024 Patient Outreach [address] [phone] Deepti Lowry MD Pre-visit Planning ((Unable to reach for PVP screening, LVM)) 04/16/2024 10:00 AM EST Office Visit [facility] [address] [place] [phone] Yogesh Connelly BDS Dental caries (Primary Dx) 03/24/2024 9:00 AM EST Office Visit [facility] [address] [place] [phone] Sarah Santa from Last 3 Months Immunizations Name Administration Dates Next Due Influenza injectable quadriv alent IIV4 with preservative 01/26/2019,01/16/2018,02/08/2017 Influenza injectable quadriv alent preservative free 02/18/2023,01/17/2022,01/21/2020 Influenza, IIV3, injectable 01/03/2021 Influenza, injectable, quadr ivalent, preservative free, pediatric 01/03/2021 Influenza, seasonal, injecta ble, preservative free 01/09/2024 Pfizer Covid-19 Vaccine 12+ 01/09/2024, 3 Pneumococcal Conjugate PCV 20 05/29/2024 RSV Bivalent 04/08/2023 TD (adult), 2 Lf tetanus tox oid, preservative free, adsorbed 02/08/2017 Td (adult), 5 Lf tetanus tox oid, preservative free, adsorbed 02/08/2017 Tdap 05/29/2024 Zoster, Recombinant 03/23/2020,01/21/2020 Social History Tobacco Use Types Packs/Day Years Used Date Smoking Tobacco: Never Passive Smoke Exposure: Never Smokeless Tobacco: Never Tobacco Cessation:Counseling Given: Not Answered Alcohol Use Standard Drinks/Week Comments Never 0 [...] Orientation Straight 02/19/2022 10 :32 AM EDT Last Filed Vital Signs Vital Sign Reading Time Taken Comments Blood Pressure 122/74 05/29/2024 1:22 PM EST Pulse 72 05/29/2024 1:22 PM EST Temperature 36 ??C (96.8 ??F) 05/29/2024 1:22 PM EST Respiratory Rate 16 05/29/2024 1:22 PM EST Oxygen Saturation 100% 02/25/2024 1:40 PM EST Inhaled Oxygen Concentration - - Weight 78.5 kg (173 lb) 05/29/2024 1:22 PM EST Height 167.9 cm (5' 6.1 ) 05/29/2024 1:22 PM EST Body Mass Index 27.84 05/29/2024 1:22 PM EST Plan of Treatment Upcoming Encounters Date Type Department Care Team (Late st Contact Info) Description 06/11/2024 11:00 AM EST Office Visit [facility] [address] [place] [address] StephenKenyatta, OD [address] [place] [address] 09/23/2024 10:00 AM EDT Office Visit [facility] [address] [place], [place] [phone] Sarah Santa [address] [place], [place] [phone] Health Maintenance Due Date Last Done Comments CT Colonography 1960 Colonoscopy 1960 FIT 1960 FOBT 1960 HIV Screening 1960 Sigmoidoscopy 1960 Alcohol/Substance Use Screening 1974 Hepatitis C Screening 1980 Dental X-Ray: Full Mouth 03/04/2024 03/03/2021, 12/21 Mammogram 07/02/2024 07/03/2023, 11/2022, 06/27/2022, Additional history exists SDOH Screening 09/05/2024 09/06/2023 Dental Oral Exam 09/23/2024 03/24/2024, , 12/30/2017 Dental Prophylaxis 09/23/2024 03/24/2024, 0 06/17/2023, 11/06/2022, Additional history exists Depression Screening 02/24/2025 02/25/2024, 12/07/19 23 Diabetes: Hemoglobin A1C 02/24/2025 024, 09/18/2023, 11/29/2022, Additional history exists Dental X-Ray: Bitewings 03/25/2025 03/24/20 24, 11/06/2022, 03/03/2021, Additional history exists Tobacco Screening 05/29/2025 05/29/2024 Pap Smear 10/16/2025 10/16/2022, 09/21, 10/16/2022 Colorectal Cancer Screening 05/22/2026 FIT DNA/Cologuard 05/22/2026 05/22/2023 Cervical Cancer Screening 10/17/2027 HPV/Cotest 10/17/2027 10/16/2022, 09/21, 04/03/2017 DTaP/Tdap/Td Vaccines (2 - Td or Tdap) 05/29/2034 05/29/2024, 02/08/2017, 02/08/2017 Zoster Vaccines Completed 03/23/2020, 01/21/2020 RSV Patients and Patients Aged 60 years or older Completed 04/08/2023 COVID-19 Vaccine Completed 01/09/2024, , 01/23/2022, Additional history exists Influenza Vaccine Completed 01/09/2024, , 01/17/2022, Additional history exists Pneumococcal Vaccine: 50+ Years Completed 05/29/2024 HIB Vaccines Aged Out No longer eligi ble based on patient's age to complete this topic HPV Vaccines Aged Out No longer eligi ble based on patient's age to complete this topic Hepatitis A Vaccines Aged Out No long er eligible based on patient's age to complete this topic Hepatitis B Vaccines Aged Out No long er eligible based on patient's age to complete this topic IPV Vaccines Aged Out No longer eligi ble based on patient's age to complete this topic Meningococcal Vaccine Aged Out No michael irma eligible based on patient's age to complete this topic RSV under 20 months Aged Out No longe r eligible based on patient's age to complete this topic Rotavirus Vaccines Aged Out No longer eligible based on patient's age to complete this topic Procedures Procedure Name Priority Date/Time Associated Diagnosis Comments ADJUNCTIVE GENERAL SERVICES - PROFESSIONAL VISITS - CASE PRESENTATION, SUBSEQUENT TO DETAILED AND EXTENSIVE TREATMENT PLANNING Routine 05/27/2024 2:00 PM EST LL PERIODONTAL SCALING AND ROOT PLANING - 4 OR MORE TEETH PER QUADRANT Routine 05/27/2024 2:00 PM EST UL PERIODONTAL SCALING AND ROOT PLANING - 4 OR MORE TEETH PER QUADRANT Routine 05/27/2024 2:00 PM EST ADJUNCTIVE GENERAL SERVICES - PROFESSIONAL VISITS - CASE PRESENTATION, SUBSEQUENT TO DETAILED AND EXTENSIVE TREATMENT PLANNING Routine 05/20/2024 1:00 PM EST LR PERIODONTAL SCALING AND ROOT PLANING - 4 OR MORE TEETH PER QUADRANT Routine 05/20/2024 1:00 PM EST UR PERIODONTAL SCALING AND ROOT PLANING - 4 OR MORE TEETH PER QUADRANT Routine 05/20/2024 1:00 PM EST 5 MDB RESTORATIVE - RESIN-BASED COMPOSITE RESTORATIONS - DIRECT - RESIN-BASED COMPOSITE - THREE SURFACES, POSTERIOR Routine 04/16/2024 10:00 AM EST 7 MF RESTORATIVE - RESIN-BASED COMPOSITE RESTORATIONS - DIRECT - RESIN-BASED COMPOSITE - TWO SURFACES, ANTERIOR Routine 04/16/2024 10:00 AM EST 12 MDB RESTORATIVE - RESIN-BASED COMPOSITE RESTORATIONS - DIRECT - RESIN-BASED COMPOSITE - THREE SURFACES, POSTERIOR Routine 04/16/2024 10:00 AM EST 30 MB RESTORATIVE - RESIN-BASED COMPOSITE RESTORATIONS - DIRECT - RESIN-BASED COMPOSITE - TWO SURFACES, POSTERIOR Routine 04/16/2024 10:00 AM EST ADJUNCTIVE GENERAL SERVICES - PROFESSIONAL VISITS - CASE PRESENTATION, SUBSEQUENT TO DETAILED AND EXTENSIVE TREATMENT PLANNING Routine 04/16/2024 10:00 AM EST 13 B(V) RESTORATIVE - RESIN-BASED COMPOSITE RESTORATIONS - DIRECT - RESIN-BASED COMPOSITE - ONE SURFACE, POSTERIOR Routine 04/16/2024 10:00 AM EST PERIODIC ORAL EVALUATION - ESTABLISHED PATIENT Routine 03/24/2024 9:00 AM EST ADJUNCTIVE GENERAL SERVICES - PROFESSIONAL VISITS - CASE PRESENTATION, SUBSEQUENT TO DETAILED AND EXTENSIVE TREATMENT PLANNING Routine 03/24/2024 9:00 AM EST PREVENTIVE - TOPICAL FLUORIDE TREATMENT (OFFICE PROCEDURE) - TOPICAL APPLICATION OF FLUORIDE - EXCLUDING VARNISH Routine 03/24/2024 9:00 AM EST INTRAORAL - PERIAPICAL EACH ADDITIONAL RADIOGRAPHIC IMAGE Routine 03/24/2024 9:00 AM EST INTRAORAL - PERIAPICAL FIRST RADIOGRAPHIC IMAGE Routine 03/24/2024 9:00 AM EST BITEWINGS - 4 RADIOGRAPHIC IMAGES Routine 03/24/2024 9:00 AM EST PROPHYLAXIS - ADULT Routine 03/24/2024 9 :00 AM EST POCT GLYCATED HEMOGLOBIN, TOTAL Routine 02/25/2024 2:03 PM EST Prediabetes BI MAMMOGRAM SCREENING TOMOSYNTHESIS BILATERAL Routine 07/03/2023 8:32 AM EDT LAB COLOGUARD?? COLON CANCER SCREEN Routine 05/22/2023 8:00 AM EST Colon cancer screening IMAGE-GUIDED PAP W/AGE BASED SCR,W/CT/NG/TRICH Routine 10/16/2022 10:25 AM EDT Encounter for Papanicolaou smear for cervical cancer screening DIAGNOSTIC - DIAGNOSTIC IMAGING - INTRAORAL - COMPREHENSIVE SERIES OF RADIOGRAPHIC IMAGES Routine 03/03/2021 12:00 AM EST from Last 3 Months or Most Recently Relevant to Health Maintenance Results * POCT HGB A1C (02/25/2024 2:03 PM EST) Hemoglobin A1C 5.9 4.0 - 6.0 % QC Media Lot # [id number] Lot# Expiration Date [id number] Blood 02/25/2024 2:03 PM EST Deepti Lainez MD POINT OF CARE TEST EN TER/EDIT ORDERABLES Final Result * BI Mammogram Screening Tomosynthesis Bilateral (07/03/2023 8:32 AM EDT) Anatomical Region Laterality Modality Breast Bilateral Mammography 07/03/2023 8:32 AM EDT Narrative 07/08/2023 5:57 AM EDT ? [facility] [place] ? [address] [facility] [address] ? Mammography Report ? Signed ? Patient: [address],Pamela C ?MR#: [id number] ?? 0 ? : 1960 ?Acct:[id number] ? Age/Sex: 63 / F ?ADM Date: 03/13/24 ? Loc: HO.MAMMO ? Attending Dr: Deepti Lainez MD ? Ordering Physician: Deepti Lowry MD ?Results: ?? 1Negative ? Date of Service: 07/03/23 ?Follow Up: 1 Year From Orig ?? inal Mammogram ? Procedure(s): MM tomosynthesis screening BI ?? Accession Number(s): [id number] ? cc: Deepti Lowry MD ? EXAMINATION: ?? MM SCREENING DIGITAL BREAST TOMOSYNTHESIS, BILATERAL ? CLINICAL INFORMATION: ? Screening. Asymptomatic. ? COMPARISON: ?? Mammography: This study is compared with prior exams dating back to ?? 2018. ? TECHNIQUE: ?? Digital breast tomosynthesis is performed in both the craniocaudal and ?? mediolateral oblique views along with computer-aided detection (CAD). ?? Synthesized 2D images are generated from the tomosynthesis. ? FINDINGS: ?? There are scattered areas of fibroglandular density (ACR BI-RADS breast ?? composition Category b). ? There are no significant masses, abnormal calcifications, or other ?? abnormalities. ? MM/MM tomosynthesis screening BI ?? IMPRESSION: ?? No mammographic evidence of malignancy. ? ASSESSMENT: ? BI-RADS BI-RADS 1 - Negative ? RECOMMENDATION: ?? Routine annual mammography screening. ? 1 year F/U ? This examination should not preclude the clinical evaluation of a ?? suspicious palpable abnormality. ? This patient's information was entered into a reminder system with a ?? target due date for their next mammogram. ? Dictated By: ?Erika Downey MD ? Signed By: ?<Electronically signed by Erika Downey MD in OV> ? 18/24 0554 ? DD/DT: /13/24 0832 ? TD/TT: ? Area Secretary: ? Procedure Note Donotuseinterpreter, Image - 07/08/2023 [place] [facility] [address] [place] [address] Mammography Report Signed Patient: Pamela Rock CMR#: [id number] 0 : 1960Acct:[id number] Age/Sex: 63 / FADM Date: 07/03/23 Loc: HO.MAMMO Attending Dr: Deepti Lainez MD Ordering Physician: Deepti Lowry MDResults: 1Negative Date of Service: 07/03/23Follow Up: 1 Year From Orig inal Mammogram Procedure(s): MM tomosynthesis screening BI Accession Number(s): [id number] cc: Deepti Lowry MD EXAMINATION: MM SCREENING DIGITAL BREAST TOMOSYNTHESIS, BILATERAL CLINICAL INFORMATION: Screening. Asymptomatic. COMPARISON: Mammography: This study is compared with prior exams dating back to 2019. TECHNIQUE: Digital breast tomosynthesis is performed in both the craniocaudal and mediolateral oblique views along with computer-aided detection (CAD). Synthesized 2D images are generated from the tomosynthesis. FINDINGS: There are scattered areas of fibroglandular density (ACR BI-RADS breast composition Category b). There are no significant masses, abnormal calcifications, or other abnormalities. MM/MM tomosynthesis screening BI IMPRESSION: No mammographic evidence of malignancy. ASSESSMENT: BI-RADS BI-RADS 1 - Negative RECOMMENDATION: Routine annual mammography screening. 1 year F/U This examination should not preclude the clinical evaluation of a suspicious palpable abnormality. This patient's information was entered into a reminder system with a target due date for their next mammogram. Dictated By: Erika Downey MD Signed By: <Electronically signed by Erika Downey MD in OV> 07/08/23 0554 DD/ 0832 TD/TT: Area Secretary: Deepti Lainez MD IMG BI PROCEDURES Fin al Result * Cologuard?? colon cancer screening (05/22/2023 8:00 AM EST) Cologuard Result Negative Negative 05/31/19 10:09 AM EST [employer] (IA #:[id number]) Comment: NEGATIVE TEST RESULT. A negative Cologuard result indicates a low likelihood that a colorectal cancer (CRC) or advanced adenoma (adenomatous polyps with more advanced pre-malignant features) ??is present. The chance that a person with a negative Cologuard test has a colorectal cancer is less than 1 in 1500 (negative predictive value >99.9%) or has an ??advanced adenoma is less than ??5.3% (negative predictive value 94.7%). These data are based on a prospective cross-sectional study of 10,000 individuals at average risk for colorectal cancer who were screened with both Cologuard and colonoscopy. (Marlee Howard al, N Engl J Med 2014;370(14):1286- 1297) The normal value (reference range) for this assay is negative. COLOGUARD RE-SCREENING RECOMMENDATION: Periodic colorectal cancer screening is an important part of preventive healthcare for asymptomatic individuals at average risk for colorectal cancer. ??Following a negative Cologuard result, the [place] [employer] and U.S. Multi-Society Task Force screening guidelines recommend a Cologuard re-screening interval of 3 years. References: [place] [employer] Guideline for Colorectal Cancer Screening: https://www.cancer.org/cancer/bkxxu-hdatic-ogprcq/bgprdptzo-makaaindf-dlowwso/ac s-rec ommendations.html.; Emmanuel DK, Ave CR, Manasa CespedesK, Colorectal Cancer Screening: Recommendations for Physicians and Patients from the U.S. Multi-Society Task Force on Colorectal Cancer Screening , Am J Gastroenterology 2017; 112:8115-7731. TEST DESCRIPTION: Composite algorithmic analysis of stool DNA-biomarkers with hemoglobin immunoassay. ?? Quantitative values of individual biomarkers are not reportable and are not associated with individual biomarker result reference ranges. Cologuard is intended for colorectal cancer screening of adults of either sex, 45 years or older, who are at average-risk for colorectal cancer (CRC). Cologuard has been approved for use by the U.S. FDA. The performance of Cologuard was established in a cross sectional study of average-risk adults aged 50-84. Cologuard performance in patients ages 45 to 49 years was estimated by sub-group analysis of near-age groups. Colonoscopies performed for a positive result may find as the most clinically significant lesion: colorectal cancer [4.0%], advanced adenoma (including sessile serrated polyps greater than or equal to 1cm diameter) [20%] or non- advanced adenoma [31%]; or no colorectal neoplasia [45%]. These estimates are derived from a prospective cross-sectional screening study of 10,000 individuals at average risk for colorectal cancer who were screened with both Cologuard and colonoscopy. (Marlee Hobson et al, N Engl J Med 2014;370(14):3389-3972.) Cologuard may produce a false negative or false positive result (no colorectal cancer or precancerous polyp present at colonoscopy follow up). A negative Cologuard test result does not guarantee the absence of CRC or advanced adenoma (pre-cancer). The current Cologuard screening interval is every 3 years. ([place] [employer] and U.S. Multi-Society Task Force). Cologuard performance data in a 10,000 patient pivotal study using colonoscopy as the reference method can be accessed at the following location: [email or web address].Telepartner/results. Additional description of the Cologuard test process, warnings and precautions can be found at [email or web address]. Stool specimen (specimen) 05/22/2023 8:00 AM EST 05/23/2023 10:50 AM EST Deepti Lainez MD LAB MOLECULAR DIAGNOS TICS ORDERABLES Final Result [employer] (CLIA #:[id number]) [place] [address], * Image-Guided Pap with Age-Based Screening??with CT/NG,??Trichomonas (10/16/2022 10:25 AM EDT) Comment [employer] [facility] Comment: This order for age-based cervical cancer and STI screening follows ACOG guidelines(PB 168, 140, JKA219). See individual assays for performing site location. Clinical Information: None given [facility] LMP: NONE GIVEN [facility] Prev. PAP: NONE GIVEN [employer] Prev. BX: NONE GIVEN [employer] SOURCE: None given [employer] Statement Of Adequacy: [employer] Comment: Satisfactory for evaluation. Endocervical/transformation zone component present. Interpretation/Re sult: Negative for intraepithelial lesion or malignancy. [employer] COMMENT: This Pap test has been evaluated with computer assisted technology. [email or web address] Bundle Cutter: [employer] Comment: WAC, CT(ASCP) CT screening location: [address] ??[address] Review Bundle Cutter: [employer] Comment: GSG, CT(ASCP) CT screening location: [address] ??[address] (Always Message) Que st [employer] Comment: EXPLANATORY NOTE: The Pap is a screening test for cervical cancer. It is not a diagnostic test and is subject to false negative and false positive results. It is most reliable when a satisfactory sample, regularly obtained, is submitted with relevant clinical findings and history, and when the Pap result is evaluated along with historic and current clinical information. HPV nRNA E6/E7 Not Detected Not Detected [email or web address] Comment: Methodology: Lunch Truck Operator-Mediated Amplification This assay detects E6/E7 viral messenger RNA (mRNA) from 14 high-risk HPV types (16,18,31,33,35,39,45,51,52,56,58,59,66,68). Cervical sources are required for HPV testing. If a vaginal source from a patient who has had a total hysterectomy with removal of cervix was submitted, please contact the testing laboratory for alternative testing options. For additional information, please refer to http://education.[employer]care [employer]arma/faq/LQY200l7 (This link if provided for information/ educational purposes only.) Chlamydia trachomatis RNA, TMA, Urogenital NOT DETECTED NOT DETECTED [email or web address] Neisseria gonorrhoeae RNA, TMA, Urogenital NOT DETECTED NOT DETECTED [facility] [employer] (Always Message) [facility] [employer] Comment: The analytical performance characteristics of this assay, when used to test SurePath(TM) specimens have been determined by [facility]. The modifications have not been cleared or approved by the FDA. This assay has been validated pursuant to the CLIA regulations and is used for clinical purposes. For additional information, please refer to https://[employer]/faq/NCS108 (This link is being provided for information/ educational purposes only.) Trichomonas vaginalis, QL, TMA, PAP Vial NOT DETECTED NOT DETECTED [facility] [employer] Comment: The analytical performance characteristics of this assay have been determined by [facility]. The modifications have not been cleared or approved by the FDA. This assay has been validated pursuant to the CLIA regulations and is used for clinical purposes. For additional information, please refer to http://[employer]/ faq/Trichomonastma (This link is being provided for information/ educational purposes only.) Pap Vial 10/16/2022 10:2 5 AM EDT 10/17/2022 2:53 AM EDT Deepti Lainez MD LAB CYTOLOGY ORDERABL ES Final Result [facility] [address], [place] [address] [facility] [employer] [address] [place] [address] from Last 3 Months or Most Recently Relevant to Health Maintenance Insurance [facility] Care Teams Marine Photographer Relationship Specialty Start Date End Date Deepti Lowry MD [address] [place], [place] [id number] PCP - General Family Medicine 07/25/20
--- OUTSIDE RECORDS SUMMARY | 2024-06-03 13:40 | XMS_ITS | Encounter Summary ---
Author Organization [employer] Address [address] [facility] 7t [place] [address] Care Team Providers Care Technician Automatic Name Role Phone Deepti Lowry MD Primary Care Provide r Reason for Visit * Reason Comments Med Refill Encounter Details Date Type Department Care Team (Late Contact Info) Description 06/29/2022 Refill [facility] MEDICINE [address] [place], [place] [phone] Roosevelt Ware MD [address] [place], [place] [phone] Major depressive disorder, remission status unspecified, unspecified whether recurrent Social History Tobacco Use Types Packs/Day Years Used Date Smoking Tobacco: Never Smokeless Tobacco: Never Comments Unknown Sex and Gender Information Value Date Recorded Sex Assigned at Female 02/19/2022 10:32 AM EDT Legal Sex Female 10:32 AM EDT Gender Identity Female 02/19/2022 10:32 AM EDT Sexual Orientation Straight 02/19/2022 10 :32 AM EDT COVID-19 Exposure Response Date Recorded In the last 10 days, have yo u been in contact with someone who was confirmed or suspected to have Coronavirus/COVID-19? No / Unsure 06/01/2022 12:47 PM EST documented as of this encounter Plan of Treatment Upcoming Encounters Date Type Department Care Team (Late Contact Info) Description 06/11/2024 11:00 AM EST Office Visit [facility] OPTOMETRY [address] [place], [place] [phone] Kenyatta Mitchell, OD 230 [place] [address] 09/23/2024 10:00 AM EDT Office Visit [facility] [address] [place], [place] [phone] Sarah Santa [address] [place], [place] [phone] documented as of this encounter Visit Diagnoses Diagnosis Major depressive disorder, remission status unspecified, unspecified whether recurrent documented in this encounter Care Teams Technician Automatic Relationship Specialty Start Date End Date Deepti Lowry MD [address] [place] [id number] PCP - General Family Medicine 07/25/20 documented as of this encounter
--- OUTSIDE RECORDS SUMMARY | 2024-06-03 13:40 | XMS_ITS | Encounter Summary ---
Author Organization [employer] Address [address] [facility] [address] 7t [place] [address] Care Team Providers Care Knocker Out Name Role Phone Deepti Lowry MD Primary Care Provide r Reason for Visit * Reason Comments Med Refill Encounter Details Date Type Department Care Team ([facility] st Contact Info) Description 05/23/2024 Refill [facility] MEDICINE 230 [place], [place] [phone] Deepti Lowry MD 230 [place], [place] [phone] Mild depression Social History Tobacco Use Types [...] Description 06/11/2024 11:00 AM EST Office Visit [facility] OPTOMETRY [address] [place] [address] Stephen, Kenyatta, OD 230 [place] [address] 09/23/2024 10:00 AM EDT Office Visit [facility] [address] [place], [place] [phone] Kiet, Sarah 91 [place] [address] documented as of this encounter Visit Diagnoses Diagnosis Mild depression Depressive disorder, not elsewhere classified documented in this encounter Additional Health Concerns Assessment Noted Time PHQ-9 Depression Total Score: 6 12/07/19 23 1:23 PM EDT documented as of this encounter Care Teams Knocker Out Relationship Specialty Start Date End Date Deepti Lowry MD [address] [place] [address] PCP - General Family Medicine 07/25/20 documented as of this encounter
--- OUTSIDE RECORDS SUMMARY | 2024-06-03 13:40 | XMS_ITS | Encounter Summary ---
Author Organization [employer] Address [address] [facility] [address] 7t [place] [address] Care Team Providers Care Car Ferrier Name Role Phone Deepti Lowry MD Primary Care Provide r Reason for Visit * Reason Comments Pre-visit Planning (Unable to reach for PVP screening, LVM) Encounter Details Date Type Department Care Team ([facility] st Contact Info) Description 05/18/2024 Patient Outreach [facility] MEDICINE 230 [place], [place] [phone] Deepti Lowry MD 230 [place] [address] Pre-visit Planning ((Unable to reach for PVP screening, LVM)) Social History Tobacco Use Types Packs/Day Years [...] AM EDT documented as of this encounter Progress Notes * Pam Sanchez - 05/18/2024 10:18 AM EST CC Pam. Placed outbound call to patient to complete pre-visit planning. No answer at this time. Patient name and were not confirmed. CC left voicemail requesting return call. Direct contact information provided. documented in this encounter Plan of Treatment Upcoming Encounters Date Type Department Care Team (Late st Contact Info) Description 06/11/2024 11:00 AM EST Office Visit [facility] OPTOMETRY [address] [place] [address] StephenKenyatta, OD 230 [place] [address] 09/23/2024 10:00 AM EDT Office Visit [facility] [address] [place] [address] Sarah Santa 91 [place], [place] [phone] documented as of this encounter Visit Diagnoses Not on filedocumented in this encounter Additional Health Concerns Assessment Noted Time PHQ-9 Depression Total Score: 6 12/07/19 23 1:23 PM EDT documented as of this encounter Care Teams Car Ferrier Relationship Specialty Start Date End Date Deepti Lowry MD 230 [place] [address] PCP - General Family Medicine 07/25/20 documented as of this encounter
--- OUTSIDE RECORDS SUMMARY | 2024-06-03 13:40 | XMS_ITS | Encounter Summary ---
Author Organization [employer] Address [address] [facility] [address] 7t [place] [address] Care Team Providers Care Separator Inserter Name Role Phone Deepti Lowry MD Primary Care Provide r Reason for Visit * Reason Comments Scaling And Root Planing Encounter Details Date Type Department Care Team (Late st Contact Info) Description 05/20/2024 1:00 PM EST Office Visit [facility] DENTAL [address] [place], [place] [phone] Sarah Santa [address] [place], [place] [phone] Social History Tobacco Use Types Packs/Day Years [...] t he electric, gas, oil or water Otonomy threatened to shut off services in your [...] Sign Reading Time Taken Comments Blood Pressure 116/66 05/20/2024 1:11 PM EST Pulse 76 05/20/2024 1:11 PM EST Temperature - - Respiratory Rate - - Oxygen Saturation - - Inhaled Oxygen Concentration - - Weight - - Height - - Body Mass Index - - documented in this encounter Progress Notes * Sarah Santa - 05/20/2024 1:00 PM EST Patient ID: Pamela Chávez is a 63 y.o. female. Time Out: Date: 05/20/2024 Location: [facility] Tooth: UR and LR Procedure: Scaling and Root Planing Verified the above with patient, photography assistant, and provider. Confirmed via patient's chart, intraorally and by radiographs. Public Health Registrar: not applicable Treatment Provided Dental procedures in this visit D4341 - PERIODONTAL SCALING AND ROOT PLANING - 4 OR MORE TEETH PER QUADRANT UL D4341 - PERIODONTAL SCALING AND ROOT PLANING - 4 OR MORE TEETH PER QUADRANT LL Instruments Used: Ultrasonic Scalers and Hand Scalers Calculus: Light-mod Plaque: Light Stain: None Bleeding: Heavy Gingiva: inflamed OH: Fair OCS: neg findings HNE: neg findings Oral hygiene instructions provided to patient including brushing technique and flossing. Recommendations: Floss daily Recall Frequency: 6 mo NV: SRP L Hygienist: Sarah Santa RDH documented in this encounter Plan of Treatment Upcoming Encounters Date Type Department Care Team (Late st Contact Info) Description 06/11/2024 11:00 AM EST Office Visit [facility] OPTOMETRY [address] [place] [phone] Kenyatta Mitchell, OD 230 [place] [address] 09/23/2024 10:00 AM EDT Office Visit [facility] DENTAL [address] [place] [address] Kiet, Sarah [address] [place] [address] documented as of this encounter Procedures Procedure Name Priority Date/Time Associated Diagnosis Comments LR PERIODONTAL SCALING AND ROOT PLANING - 4 OR MORE TEETH PER QUADRANT Routine 05/20/2024 1:00 PM EST UR PERIODONTAL SCALING AND ROOT PLANING - 4 OR MORE TEETH PER QUADRANT Routine 05/20/2024 1:00 PM EST [facility] GENER[facility] - PROFESSIONAL VISITS - CASE PRESENTATION, SUBSEQUENT TO DETAILED AND EXTENSIVE TREATMENT PLANNING Routine 05/20/2024 1:00 PM EST documented in this encounter Visit Diagnoses Not on filedocumented in this encounter Additional Health Concerns Assessment Noted Time PHQ-9 Depression Total Score: 6 12/07/19 23 1:23 PM EDT documented as of this encounter Care Teams Separator Inserter Relationship Specialty Start Date End Date Deepti Lowry MD 230 [place] [address] PCP - General Family Medicine 07/25/20 documented as of this encounter
--- OUTSIDE RECORDS SUMMARY | 2024-06-03 13:40 | XMS_ITS | Encounter Summary ---
Author Organization [facility] Address [address] [facility] 7t [place] [address] Care Team Providers Care Rock Dust Sprayer Name Role Phone Deepti Lowry MD Primary Care Provide r Encounter Details Date Type Department Care Team (Latest Contact Info) Description 06/11/2018 Abstract [facility] CONVERSIONS Dental, Provider, DDS Social History Tobacco [...] Description 06/11/2024 11:00 AM EST Office Visit [facility] OPTOMETRY [address] [place], [place] [phone] Kenyatta Mitchell, OD [address] [place] [address] 09/23/2024 10:00 AM EDT Office Visit [facility] [address] [place], [place] [phone] Kiet Sarah 91 [place], [place] [phone] documented as of this encounter Visit Diagnoses Not on filedocumented in this encounter Care Teams Rock Dust Sprayer Relationship Specialty Start Date End Date Deepti Lowry MD 230 [place] [address] PCP - General Family Medicine 07/25/20 documented as of this encounter
--- OUTSIDE RECORDS SUMMARY | 2024-06-03 13:40 | XMS_ITS | Encounter Summary ---
Author Organization [employer] Address [address] [facility] [address] 7[address] [place] [address] Care Team Providers Care Associate Manager Name Role Phone Deepti Lowry MD Primary Care Provide r Encounter Details Date Type Department Care Team (Latest Contact Info) Description 05/29/2024 Travel Social History Tobacco Use Types Packs/Day Years [...] Description 06/11/2024 11:00 AM EST Office Visit [facility] OPTOMETRY [address] [place] [address] StephenKenyatta beck, OD [address] [place] [address] 09/23/2024 10:00 AM EDT Office Visit [facility] [address] [place], [place] [phone] Sarah Santa [address] [place], [place] [phone] documented as of this encounter Visit Diagnoses Not on filedocumented in this encounter Additional Health Concerns Assessment Noted Time PHQ-9 Depression Total Score: 6 12/07/19 23 1:23 PM EDT documented as of this encounter Care Teams Associate Manager Relationship Specialty Start Date End Date Deepti Lowry MD 230 [place] [address] PCP - General Family Medicine 07/25/20 documented as of this encounter
--- OUTSIDE RECORDS SUMMARY | 2024-06-03 13:40 | XMS_ITS | Encounter Summary ---
Author Organization [employer] Address [address] [facility] [address] 7t [place] [address] Care Team Providers Care Knitting Supervisor Name Role Phone Deepti Lowry MD Primary Care Provide r Reason for Visit * Reason Comments Follow-up Encounter Details Date Type Department Care Team (Latest Contact Info) Description 05/29/2024 1:30 PM EST Office Visit [facility] MEDICINE 230 [place], [place] [phone] Deepti Lowry MD 230 [place] [address] Gastroesophageal reflux disease, unspecified whether esophagitis present; Mild depression; Prediabetes; Encounter for immunization Social History Tobacco Use Types Packs/Day Years [...] 16 05/29/2024 1:22 PM EST Oxygen Saturation - - Inhaled Oxygen Concentration - - Weight 78.5 kg (173 lb) 05/29/2024 1:22 PM EST Height 167.9 cm (5' 6.1 ) 05/29/2024 1:22 PM EST Body Mass Index 27.84 05/29/2024 1:22 PM EST documented in this encounter Progress Notes * Deepti Lainez MD - 05/29/2024 1:30 PM EST SUBJECTIVE: Pamela Chávez is a 64 y.o. year old female who presents for Follow up . Acute Concerns: None Social History Social History Narrative Not on file Patient Active Problem List Diagnosis Anxiety Depressive disorder Mild depression Numbness of hand Foot pain Vitamin D deficiency Prediabetes Encounter for Papanicolaou smear for cervical cancer screening Chronic pain of right knee GERD (gastroesophageal reflux disease) Encounter for preventative adult health care examination Colon cancer screening Seasonal allergies Face lesion No family history on file. Review of Systems Constitutional: Negative. HENT: Negative. Respiratory: Negative. Cardiovascular: Negative. OBJECTIVE: Vitals: 05/29/24 1322 BP: 122/74 BP Location: Left arm Patient Position: Sitting BP Cuff Size: Adult Pulse: 72 Resp: 16 Temp: 96.8 ??F (36 ??C) TempSrc: Oral Weight: 173 lb (78.5 kg) Height: 5' 6.1 (1.679 m) Physical Exam Constitutional: Appearance: Normal appearance. Cardiovascular: Rate and Rhythm: Normal rate and regular rhythm. Pulmonary: Effort: Pulmonary effort is normal. Breath sounds: Normal breath sounds. Abdominal: General: Abdomen is flat. Palpations: Abdomen is soft. Musculoskeletal: Right lower leg: No edema. Left lower leg: No edema. Neurological: Mental Status: She is alert. Follow Up: Follow up in about 3 months (around 08/26/2024) for chronic conditions . Current Outpatient Medications on File Prior to Visit Medication Sig Dispense Refill Bisacodyl EC 5 MG EC tablet Take 10 mg by mouth at bedtime. cetirizine (ZyrTEC) 10 MG tablet Take 1 tablet (10 mg) by mouth at bedtime. 30 tablet 1 chlorhexidine (Peridex) 0.12 % solution place 1/2 oz in mouth swish for 30 seconds then spit out 2 times per day cholecalciferol (Vitamin D-3) 25 MCG (1000 UT) capsule Take 1 capsule by mouth at bed time. metFORMIN (Glucophage) 500 MG tablet Take 1 tablet (500 mg) by mouth with breakfast and with evening meal. 180 tablet 2 Simethicone Ultra Strength 180 MG capsule TAKE 1 CAPSULE BY MOUTH FOUR TIMES DAILY AFTER MEALS 90 capsule 2 triamcinolone (Kenalog) 0.1 % cream Apply topically every 12 (twelve) hours. [DISCONTINUED] famotidine (Pepcid) 20 MG tablet Take 1 tablet (20 mg) by mouth Once per day. 60 tablet 3 [DISCONTINUED] sertraline (Zoloft) 25 MG tablet TAKE 1 TABLET(25 MG) BY MOUTH IN THE MORNING 90 tablet 0 No current facility-administered medications on file prior to visit. Problem List Items Addressed This Visit GERD (gastroesophageal reflux disease) I advise patient to avoid NSAIDs, spicy and acid food, I advise to eat at the same time every day, I advise to elevate the head of the bed and take medications as prescribe Relevant Medications famotidine (Pepcid) 20 MG tablet Mild depression Counseling done continue with sertraline 25 mg daily Relevant Medications sertraline (Zoloft) 25 MG tablet Prediabetes Today extensive discussion was done about life style modifications I advise healthy diet (low calorie) and cardiovascular exercise Relevant Orders Albumin, Random Urine W/Creatinine Other Visit Diagnoses Encounter for immunization Relevant Orders TDAP VACCINE 7 yrs + (Completed) PCV-20 VACCINE 6 wks + (Completed) documented in this encounter Miscellaneous Notes * Assessment & Plan Note - Deepti Lainez MD - 06/01/2024 5:07 PM EST Associated Problem(s): Mild depression Counseling done continue with sertraline 25 mg daily * Assessment & Plan Note - Deepti Lainez MD - 06/01/2024 5:07 PM EST Associated Problem(s): Prediabetes Today extensive discussion was done about life style modifications I advise healthy diet (low calorie) and cardiovascular exercise * Assessment & Plan Note - Deepti Lainez MD - 06/01/2024 5:06 PM EST Associated Problem(s): GERD (gastroesophageal reflux disease) I advise patient to avoid NSAIDs, spicy and acid food, I advise to eat at the same time every day, I advise to elevate the head of the bed and take medications as prescribe documented in this encounter Plan of Treatment Upcoming Encounters Date Type Department Care Team (Late st Contact Info) Description 06/11/2024 11:00 AM EST Office Visit [facility] OPTOMETRY [address] [place] [address] Kenyatta Mitchell, OD [address] [place] [address] 09/23/2024 10:00 AM EDT [facility] 91 [place], [place] [phone] Kiet, Sarah 91 [place], [place] [phone] Scheduled Orders Name Type Priority Associated Diagnoses Orde r Schedule Albumin, Random Urine W/Creatinine Lab Routine Prediabetes Expected: 05/29/2024 (Approximate), Expires: 05/29/2025 documented as of this encounter Visit Diagnoses Diagnosis Gastroesophageal reflux disease, unspecified whether esophagitis present Mild depression Depressive disorder, not elsewhere classified Prediabetes Other abnormal glucose Encounter for immunization documented in this encounter Additional Health Concerns Assessment Noted Time PHQ-9 Depression Total Score: 6 12/07/19 23 1:23 PM EDT documented as of this encounter Care Teams Knitting Supervisor Relationship Specialty Start Date End Date Deepti Lowry MD 230 [place] [address] PCP - General Family Medicine 07/25/20 documented as of this encounter
--- OUTSIDE RECORDS SUMMARY | 2024-06-03 13:41 | XMS_ITS | Encounter Summary ---
Author Organization [employer] Address [address] [facility] [address] 7t [place] [address] Care Team Providers Care Transmission Maintenance Supervisor Name Role Phone Deepti Lowry MD Primary Care Provide r Reason for Visit * Reason Comments Med Refill Encounter Details Date Type Department Care Team ([facility] st Contact Info) Description 12/21/2023 Refill [facility] MEDICINE 230 [place], [place] [phone] Deepti Lowry MD 230 [place], [place] [phone] Mild depression Social History Tobacco Use Types [...] Description 06/11/2024 11:00 AM EST Office Visit [facility] OPTOMETRY [address] [place], [place] [phone] StephenKenyatta beck, OD 230 [place] [address] 09/23/2024 10:00 AM EDT Office Visit [facility] [address] [place] [address] Kiet Sarah 91 [place] [address] documented as of this encounter Visit Diagnoses Diagnosis Mild depression Depressive disorder, not elsewhere classified documented in this encounter Additional Health Concerns Assessment Noted Time PHQ-9 Depression Total Score: 6 12/07/19 23 1:23 PM EDT documented as of this encounter Care Teams Transmission Maintenance Supervisor Relationship Specialty Start Date End Date Deepti Lowry MD [address] [place] [address] PCP - General Family Medicine 07/25/20 documented as of this encounter
--- OUTSIDE RECORDS SUMMARY | 2024-06-03 13:41 | XMS_ITS | Encounter Summary ---
Author Organization [employer] Address [address] [facility] 7t [place] [address] Care Team Providers Care Ip Attorney Name Role Phone Deepti Lowry MD Primary Care Provide r Reason for Visit * Reason Comments Med Refill Encounter Details Date Type Department Care Team ([facility] st Contact Info) Description 12/17/2023 Refill [facility] MEDICINE [address] [place], [place] [phone] Deepti Lowry MD 230 [place], [place] [phone] Mild depression Social History Tobacco Use Types [...] Description 06/11/2024 11:00 AM EST Office Visit [facility] OPTOMETRY [address] [place], [place] [phone] StephenKenyatta beck, OD 230 [place] [address] 09/23/2024 10:00 AM EDT Office Visit [facility] D[facility] [address] [place] [address] Kiet Sarah 91 [place] [address] documented as of this encounter Visit Diagnoses Diagnosis Mild depression Depressive disorder, not elsewhere classified documented in this encounter Additional Health Concerns Assessment Noted Time PHQ-9 Depression Total Score: 6 12/07/19 23 1:23 PM EDT documented as of this encounter Care Teams Ip Attorney Relationship Specialty Start Date End Date Deepti Lowry MD [address] [place] [address] PCP - General Family Medicine 07/25/20 documented as of this encounter
[2024-06-03 14:41] LABS: Creatinine Urine 11.53 mg/dL; Microalbumin Urine < 5.0 mg/L
== END 2024-06-03 11:49 | disposition home or self-care (01) ==
LOC: HO.HHCL 11:48
PROVIDERS: Visit Provider Internal Medicine
DX: R73.03 Prediabetes (principal)
CPT/HCPCS: 82043; 82570

== ENCOUNTER 2024-07-15 09:40 | Outpatient (REF) | payer OTHER, SELFPAY ==
--- OUTSIDE RECORDS SUMMARY | 2024-07-15 10:48 | XMS_ITS | Encounter Summary ---
Author Organization [employer] [facility] Address [address] [place] [address] 7t [place] [address] Care Team Providers Care Telegraph Dispatcher Name Role Phone Deepti Lowry MD Primary Care Provide r Encounter Details Date Type Department Care Team (Latest Contact Info) Description 03/03/2021 Abstract [facility] CONVERSIONS Dental, Provider, DDS Social [...] Upcoming Encounters Date Type Department Care Team ( st Contact Info) Description 08/27/2024 1:45 PM EDT Office Visit [facility] MEDICINE [address] [place] [address] Deepti Lowry MD 230 [place] [address] 09/23/2024 10:00 AM EDT Office Visit [facility] 91 [place], [place] [phone] Sarah Santa 91 [place], [place] [phone] documented as of this encounter Visit Diagnoses Not on filedocumented in this encounter Care Teams Telegraph Dispatcher Relationship Specialty Start Date End Date Deepti Lowyr MD [address] [place] [address] PCP - General Family Medicine 07/25/20 documented as of this encounter
--- OUTSIDE RECORDS SUMMARY | 2024-07-15 10:48 | XMS_ITS | Clinical Summary ---
Author Organization [employer] Address [address] [facility] 7t [place] [address] Care Team Providers Care Business Systems Developer Name Role Phone Deepti Lowry MD Primary Care Provide r Allergies No known active allergies Medications chlorhexidine (Peridex) 0.12 % solution place 1/2 oz in mouth swish for 30 seconds then spit out 2 times per day 0 Active triamcinolone (Kenalog) 0.1 % cream Apply topically every 12 (twelve) hours. 1 Active cholecalciferol (Vitamin D-3) 25 MCG (1000 UT) capsule Take 1 capsule by mouth at bed time. 1 Active Bisacodyl EC 5 MG EC tablet Take 10 mg by mouth at bedtime. 3 Active cetirizine (ZyrTEC) 10 MG tabletIndication s:Seasonal allergies Take 1 tablet (10 mg) by mouth at bedtime. 30 tablet 1 4 Active Simethicone Ultra Strength 180 MG capsuleIndicatio ns:Gastroesophag eal reflux disease, unspecified whether esophagitis present TAKE 1 CAPSULE BY MOUTH FOUR TIMES DAILY AFTER MEALS 90 capsule 2 4 Active metFORMIN (Glucophage) 500 MG tabletIndication s:Prediabetes Take 1 tablet (500 mg) by mouth with breakfast and with evening meal. 180 tablet 2 4 Active famotidine (Pepcid) 20 MG tabletIndication s:Gastroesophage al reflux disease, unspecified whether esophagitis present Take 1 tablet (20 mg) by mouth Once per day. 60 tablet 3 5 Active sertraline (Zoloft) 25 MG tabletIndication s:Mild depression TAKE 1 TABLET(25 MG) BY MOUTH IN THE MORNING 90 tablet 1 5 Active Active Problems Problem Noted Date Diagnosed Date [...] (low calorie) and cardiovascular exercise Encounter for Jyothi zheng for cervical cancer screening 10/16/2022 Assessment & [...] Encounters Date Type Department Care Team Description 06/11/2024 11:00 AM EST Office Visit [facility] OPTOMETRY [address] [place], [place] [phone] Stephen, Kenyatta, OD Early cataracts, bilateral (Primary Dx); Presbyopia of both eyes 06/11/2024 Travel 06/05/2024 Telephone [facility] MEDICINE [address] [place], [place] [phone] Deepti Lowry MD MAY RECALL 05/29/2024 1:30 PM EST Office Visit [facility] [address] [place] [address] Deepti Lowry MD Gastroesophageal reflux disease, unspecified whether esophagitis present; Mild depression; Prediabetes; Encounter for immunization 05/29/2024 Travel 05/27/2024 2:00 PM EST Office Visit [facility] DENTAL [address] [place], [place] [phone] Sarah Santa 05/27/2024 Telephone [facility] MEDICINE [address] [place] [address] Loly Calvillo MA r\s due to weather 05/27/2024 Telephone [facility] MEDICINE [address] [place], [place] [phone] Loly Calvillo MA Chart Prep 05/23/2024 Refill [facility] MEDICINE [address] [place] [address] Deepti Lowry MD Mild depression 05/20/2024 1:00 PM EST Office Visit [facility] DENTAL [address] [place] [phone] Narciso Santaine 05/18/2024 Patient Outreach [facility] MEDICINE [address] [place] [address] Deepti Lowry MD Pre-visit Planning ((Unable to reach for PVP screening, LVM)) 04/16/2024 10:00 AM EST Office Visit [facility] DENTAL [address] [place] [address] [phone] Yogesh Connelly BDS Dental caries (Primary Dx) from Last 3 Months Immunizations Name Administration [...] Care Team (Late st Contact Info) Description 08/27/2024 1:45 PM EDT Office Visit [facility] MEDICINE [address] [place] [address] Deepti Lowry MD [address] [place] [address] 09/23/2024 10:00 AM EDT Office Visit [facility] DENTAL [address] [place] [address] [phone] Kiet, Sarah [address] [place], [place] [phone] Health Maintenance Due Date Last Done Comments [...] Procedure Name Priority Date/Time Associated Diagnosis Comments ALBUMIN, RANDOM URINE W/CREATININE Routine 06/03/2024 11:50 AM EST Prediabetes CASE PRESENTATION, DETAILED AND EXTENSIVE TREATMENT PLANNING Routine 05/27/2024 2:00 PM EST LL PERIODONTAL SCALING AND ROOT PLANING - 4 OR MORE TEETH PER QUADRANT Routine 05/27/2024 2:00 PM EST UL PERIODONTAL SCALING AND ROOT PLANING - 4 OR MORE TEETH PER QUADRANT Routine 05/27/2024 2:00 PM EST CASE PRESENTATION, DETAILED AND EXTENSIVE TREATMENT PLANNING Routine 05/20/2024 1:00 PM EST LR PERIODONTAL SCALING AND ROOT PLANING - 4 OR MORE TEETH PER QUADRANT Routine 05/20/2024 1:00 PM EST UR PERIODONTAL SCALING AND ROOT PLANING - 4 OR MORE TEETH PER QUADRANT Routine 05/20/2024 1:00 PM EST 5 MDB RESIN-BASED COMPOSITE - 3 SURF, POSTERIOR Routine 04/16/2024 10:00 AM EST 7 MF RESIN-BASED COMPOSITE - 2 SURF, ANTERIOR Routine 04/16/2024 10:00 AM EST 12 MDB RESIN-BASED COMPOSITE - 3 SURF, POSTERIOR Routine 04/16/2024 10:00 AM EST 30 MB RESIN-BASED COMPOSITE - 2 SURF, POSTERIOR Routine 04/16/2024 10:00 AM EST CASE PRESENTATION, DETAILED AND EXTENSIVE TREATMENT PLANNING Routine 04/16/2024 10:00 AM EST 13 B(V) RESIN-BASED COMPOSITE - 1 SURF, POSTERIOR Routine 04/16/2024 10:00 AM EST PROPHYLAXIS - ADULT Routine 03/24/2024 9 :00 AM EST BITEWINGS - 4 RADIOGRAPHIC IMAGES Routine 03/24/2024 9:00 AM EST PERIODIC ORAL EVALUATION - ESTABLISHED PATIENT Routine 03/24/2024 9:00 AM EST POCT GLYCATED HEMOGLOBIN, TOTAL Routine 02/25/2024 2:03 PM EST Prediabetes BI MAMMOGRAM SCREENING TOMOSYNTHESIS BILATERAL Routine 07/03/2023 8:32 AM EDT LAB COLOGUARD?? COLON CANCER SCREEN Routine 05/22/2023 8:00 AM EST Colon cancer screening IMAGE-GUIDED PAP W/AGE BASED SCR,W/CT/NG/TRICH Routine 10/16/2022 10:25 AM EDT Encounter for Papanicolaou smear for cervical cancer screening INTRAORAL - COMPLETE SERIES OF RADIOGRAPHIC IMAGES Routine 03/03/2021 12:00 AM EST from Last 3 Months or Most Recently Relevant to Health Maintenance Results * Albumin, Random Urine W/Creatinine (06/03/2024 11:50 AM EST) Creatinine, Urine 11.53 mg/dL [facility] Microalbumin Urine <5.0 mg/L [facility] Microalbum Creatinine Ratio Ur TNP <30 ug/mg cr [facility] Comment:Unable to calculate albumin/creatinine ratio due to lowmicroalbumin or creatinine result. Urine (Urine, Random) 06/03/2024 11:50 AM EST 06/03/2024 1:44 PM EST us Deepti Lainez MD LAB URINE ORDERABLES Final Result [facility] [address] [place] [address] [phone] * POCT HGB A1C (02/25/2024 2:03 PM EST) Hemoglobin A1C 5.9 4.0 - 6.0 % QC Media Lot # [id number] Lot# Expiration Date [id number] Blood 02/25/2024 2:03 PM EST us Deepti Lainez MD POINT OF CARE TEST EN TER/EDIT ORDERABLES Final Result * BI Mammogram Screening Tomosynthesis Bilateral (07/03/2023 8:32 AM EDT) Anatomical Region Laterality Modality Breast Bilateral Mammography 07/03/2023 8:32 AM EDT Narrative 07/08/2023 5:57 AM EDT ? [facility] [place] ? [address] ?[place] [address] ? Mammography Report ? Signed ? Patient: Pamela Rock C ?MR#: [id number] ?? 0 ? : 1960 ?Acct:[id number] ? Age/Sex: 63 / F ?ADM Date: 03/13/24 ? Loc: HO.MAMMO ? Attending Dr: Deepti Lainez MD ? Ordering Physician: Deepti Lowry MD ?Results: ?? 1Negative ? Date of Service: 07/03/23 ?Follow Up: 1 Year From Orig ?? inal Mammogram ? Procedure(s): MM tomosynthesis screening BI ?? Accession Number(s): [id number] ? cc: Deepti Lowry MD ? EXAMINATION: [...] by Erika Downey MD in OV> ? 07/08/23 0554 ? DD/ 0832 ? TD/TT: ? Agency Sales Management Assistant: ? Procedure Note Bari, Image - 07/08/2023 [facility] [address] [place] [address] [place] [address] Mammography Report Signed Patient: Pamela Rock CMR#: [id number] 0 : 1960Acct:[id number] Age/Sex: 63 / FADM Date: 07/03/23 Loc: HO.MAMMO Attending Dr: Deepti Lainez MD Ordering Physician: Deepti Lowry MDResults: 1Negative Date of Service: 07/03/23Follow Up: 1 Year From Orig inal Mammogram Procedure(s): MM tomosynthesis screening BI Accession Number(s): [id number] cc: Deepti Lowry MD EXAMINATION: MM SCREENING [...] in OV> 07/08/23 0554 DD/ 0832 TD/TT: Agency Sales Management Assistant: us Deepti Lainez MD IMG BI PROCEDURES Fin al Result * Cologuard?? colon cancer screening (05/22/2023 8:00 AM EST) Cologuard Result Negative Negative 05/31/19 10:09 AM EST [facility] (CLIA #:[id number]) Comment: NEGATIVE TEST RESULT. A negative Cologuard [...] cancer. ??Following a negative Cologuard result, the [place] Cancer Society and U.S. Multi-Society Task Force screening guidelines recommend a Cologuard re-screening interval of 3 years. References: [place] [employer] Society Guideline for Colorectal Cancer Screening: https://www.cancer.org/cancer/ijust-yjaayl-ebqcki/sqcoidfpy-hezcpsgrh-txdwsxs/ac s-rec ommendations.html.; Emmanuel PIKE, Ave GARCIA, Manasa CespedesK, Colorectal Cancer Screening: Recommendations for Physicians and Patients from the U.S. Multi-Society Task Force on Colorectal Cancer Screening , Am J Gastroenterology 2017; 112:8924-2049. TEST DESCRIPTION: Composite algorithmic analysis of stool [...] Hobson et al, N Engl J Med 2014;370(14):0618-8191.) Cologuard may produce a false negative or false positive result (no colorectal cancer or precancerous polyp present at colonoscopy follow up). A negative Cologuard test result does not guarantee the absence of CRC or advanced adenoma (pre-cancer). The current Cologuard screening interval is every 3 years. ([place] Cancer Society and U.S. Multi-Society Task Force). Cologuard performance data in a 10,000 patient pivotal study using colonoscopy as the reference method can be accessed at the following location: www.Cash Check Card/results. Additional description of the Cologuard test process, warnings and precautions can be found at www.MicroCHIPSrd.nPicker. Stool specimen (specimen) 05/22/2023 8:00 AM EST 05/23/2023 10:50 AM EST Deepti Lainez MD LAB MOLECULAR DIAGNOS TICS ORDERABLES Final Result [facility] (CLIA #:[id number]) [address] [place] [address], * Image-Guided Pap with Age-Based Screening??with CT/NG,??Trichomonas (10/16/2022 10:25 AM EDT) Comment [facility] Comment: This order for age-based cervical cancer and STI screening follows ACOG guidelines(PB 168, 140, XZQ013). See individual assays for performing site location. Clinical Information: None given [facility] LMP: NONE GIVEN [facility] Prev. PAP: NONE GIVEN [facility] Prev. BX: NONE GIVEN [facility] [place] [employer] SOURCE: None given [facility] Statement Of Adequacy: [facility] [place] [facility] Comment: Satisfactory for evaluation. Endocervical/transformation zone component present. Interpretation/Re sult: Negative for intraepithelial lesion or malignancy. [facility] [place] [facility] COMMENT: This Pap test has been evaluated with computer assisted technology. [facility] [place] [facility] Fiber Optic Technician: [facility] [place] [facility] Comment: WAC, CT(ASCP) CT screening location: [address] ??[address] Review Fiber Optic Technician: [facility] [place] [facility] Comment: GSG, CT(ASCP) CT screening location: [address] ??[address] (Always Message) Que st [facility] Comment: EXPLANATORY NOTE: The Pap is a [...] HPV nRNA E6/E7 Not Detected Not Detected [employer] Comment: Methodology: Financial Representative-Mediated Amplification This assay detects E6/E7 viral messenger RNA (mRNA) from 14 high-risk HPV types (16,18,31,33,35,39,45,51,52,56,58,59,66,68). Cervical sources are required for HPV testing. If a vaginal source from a patient who has had a total hysterectomy with removal of cervix was submitted, please contact the testing laboratory for alternative testing options. For additional information, please refer to http://education.Visual Networks/faq/EQI057m1 (This link if provided for information/ educational purposes only.) Chlamydia trachomatis RNA, TMA, Urogenital NOT DETECTED NOT DETECTED [employer] Neisseria gonorrhoeae RNA, TMA, Urogenital NOT DETECTED NOT DETECTED [employer] Gamet (Always Message) [employer] Comment: The analytical performance characteristics of this assay, when used to test SurePath(TM) specimens have been determined by [employer]. The modifications have not been cleared or approved by the FDA. This assay has been validated pursuant to the CLIA regulations and is used for clinical purposes. For additional information, please refer to https://SpendCrowd.Visual Networks/faq/QUK296 (This link is being provided for information/ educational purposes only.) Trichomonas vaginalis, QL, TMA, PAP Vial NOT DETECTED NOT DETECTED [facility] Comment: The analytical performance characteristics of this assay have been determined by [employer]. The modifications have not been cleared or approved by the FDA. This assay has been validated pursuant to the CLIA regulations and is used for clinical purposes. For additional information, please refer to http://SpendCrowd.Visual Networks/ faq/Trichomonastma (This link is being provided for information/ educational purposes only.) Pap Vial 10/16/2022 10:2 5 AM EDT 10/17/2022 2:53 AM EDT Deepti Lainez MD LAB CYTOLOGY ORDERABL ES Final Result [facility] [address], [place] [address] [facility] [address] [place] [address] from Last 3 Months or Most Recently Relevant to Health Maintenance Insurance [facility] * Guarantor: Pamela Weaver Account Type Relation to Patient Date of Phone Billing Address Personal/Family Self 2 [facility] Sean Mcgraw [place] ID Care Teams Business Systems Developer Relationship Specialty Start Date End Date Deepti Lowry MD [address] [place] [phone] PCP - General Family Medicine 07/25/20
--- OUTSIDE RECORDS SUMMARY | 2024-07-15 10:48 | XMS_ITS | Encounter Summary ---
Author Organization [facility] Address [address] [place] [address] 7t [place] [address] Care Team Providers Care Junior Designer Name Role Phone Deepti Lowry MD Primary Care Provide r Encounter Details Date Type Department Care Team (Latest Contact Info) Description 06/11/2018 Abstract [facility] CONVERSIONS Dental, Provider, DDS Social [...] Description 08/27/2024 1:45 PM EDT Office Visit [facility] MEDICINE [address] [place], [place] [phone] Deepti Lowry MD [address] [place] [address] 09/23/2024 10:00 AM EDT Office Visit [facility] DENTAL [address] [place], [place] [phone] Sarah Santa [address] [place], [place] [phone] documented as of this encounter Visit Diagnoses Not on filedocumented in this encounter Care Teams Junior Designer Relationship Specialty Start Date End Date Deepti Lowry MD [address] [place] [address] PCP - General Family Medicine 07/25/20 documented as of this encounter
--- OUTSIDE RECORDS SUMMARY | 2024-07-15 10:48 | XMS_ITS | Encounter Summary ---
Author Organization [facility] [facility] Address [address] [facility] 7t [place] [address] Care Team Providers Care Unionmelt Operator Name Role Phone Deepti Lowry MD Primary Care Provide r Reason for Visit * Reason Comments Med Refill Encounter Details Date Type Department Care Team ([facility] Contact Info) Description 06/29/2022 Refill [facility] MEDICINE [address] [place] [address] [phone] Roosevelt Ware MD [address] [place], [place] [phone] Major depressive disorder, remission status unspecified, unspecified [...] Department Care Team (Late Contact Info) Description 08/27/2024 1:45 PM EDT Office Visit [facility] MEDICINE [address] [place] [address] [phone] Deepti Lowry MD [address] [place] [address] 09/23/2024 10:00 AM EDT Office Visit [facility] DENTAL [address] [place], [place] [phone] Sarah Santa [address] [place], [place] [phone] documented as of this encounter Visit Diagnoses Diagnosis Major depressive disorder, remission status unspecified, unspecified whether recurrent documented in this encounter Care Teams Unionmelt Operator Relationship Specialty Start Date End Date eDepti Lowry MD 230 [place] [address] PCP - General Family Medicine 07/25/20 documented as of this encounter
--- OUTSIDE RECORDS SUMMARY | 2024-07-15 10:48 | XMS_ITS | Encounter Summary ---
Author Organization [employer] Address [address] [facility] [address] 7t [place] [address] Care Team Providers Care Quality Control Lab Tech Name Role Phone Deepti Lowry MD Primary Care Provide r Reason for Visit * Reason Comments Med Refill Encounter Details Date Type Department Care Team ([facility] st Contact Info) Description 01/06/2024 Refill [facility] MEDICINE [address] [place], [place] [phone] Deepti Lowry MD [address] [place], [place] [phone] Mild depression Social History Tobacco Use Types [...] Description 08/27/2024 1:45 PM EDT Office Visit [facility] MEDICINE [address] [place], [place] [phone] Deepti Lowry MD [address] [place] [phone] 09/23/2024 10:00 AM EDT Office Visit [facility] [address] [place], [place] [phone] Sarah Santa [address] [place], [place] [phone] documented as of this encounter Visit Diagnoses Diagnosis Mild depression Depressive disorder, not elsewhere classified documented in this encounter Additional Health Concerns Assessment Noted Time PHQ-9 Depression Total Score: 6 12/07/19 23 1:23 PM EDT documented as of this encounter Care Teams Quality Control Lab Tech Relationship Specialty Start Date End Date Deepti Lowry MD [address] [place] [address] [phone] PCP - General Family Medicine 07/25/20 documented as of this encounter
--- OUTSIDE RECORDS SUMMARY | 2024-07-15 10:48 | XMS_ITS | Encounter Summary ---
Author Organization [facility] Address [address] [place] [address] 7t [place] [address] Care Team Providers Care Machine Edge Bander Name Role Phone Deepti Lowry MD Primary Care Provide r Encounter Details Date Type Department Care Team (Latest Contact Info) Description 10/01/2018 Abstract [facility] CONVERSIONS Dental, Provider, DDS Social History [...] Description 08/27/2024 1:45 PM EDT Office Visit [facility] MEDICINE [address] [place], [place] [phone] Deepti Lowry MD [address] [place] [address] 09/23/2024 10:00 AM EDT Office Visit [facility] [address] [place], [place] [phone] Sarah Santa 91 [place], [place] [phone] documented as of this encounter Visit Diagnoses Not on filedocumented in this encounter Care Teams Machine Edge Bander Relationship Specialty Start Date End Date Deepti Lowry MD [address] [place] [address] PCP - General Family Medicine 07/25/20 documented as of this encounter
--- OUTSIDE RECORDS SUMMARY | 2024-07-15 10:49 | XMS_ITS | Encounter Summary ---
Author Organization [employer] Address [address] [facility] [address] 7[address] [place] [address] Care Team Providers Care Hot Die Press Operator Name Role Phone Deepti Lowry MD Primary Care Provide r Reason for Visit * Reason Comments Med Refill Encounter Details Date Type Department Care Team ([facility] st Contact Info) Description 12/17/2023 Refill [facility] MEDICINE [address] [place], [place] [phone] Deepti Lowry MD [address] [place], [place] [phone] Mild depression Social History Tobacco Use Types [...] Description 08/27/2024 1:45 PM EDT Office Visit [facility] MEDICINE [address] [place], [place] [phone] Deepti Lowry MD [address] [place] [phone] 09/23/2024 10:00 AM EDT Office Visit [facility] DENTAL [address] [place], [place] [phone] Sarah Santa [address] [place], [place] [phone] documented as of this encounter Visit Diagnoses Diagnosis Mild depression Depressive disorder, not elsewhere classified documented in this encounter Additional Health Concerns Assessment Noted Time PHQ-9 Depression Total Score: 6 12/07/19 23 1:23 PM EDT documented as of this encounter Care Teams Hot Die Press Operator Relationship Specialty Start Date End Date Deepti Lowry MD [address] [place] [address] [phone] PCP - General Family Medicine 07/25/20 documented as of this encounter
--- OUTSIDE RECORDS SUMMARY | 2024-07-15 10:49 | XMS_ITS | Encounter Summary ---
Author Organization [employer] Address [address] [facility] [facility] [address] 7t [place] [address] Care Team Providers Care Guide Winder Name Role Phone Deepti Lowry MD Primary Care Provide r Reason for Visit * Reason Comments Med Refill Encounter Details Date Type Department Care Team ([facility] st Contact Info) Description 12/21/2023 Refill [facility] MEDICINE [address] [place], [place] [phone] Deepti Lowry MD [address] [place], [place] [phone] Mild depression Social History Tobacco Use Types [...] [facility] MEDICINE [address] [place], [place] [phone] Deepti Lowry MD [address] [place] [phone] 09/23/2024 10:00 AM EDT Office Visit [facility] DENTAL [address] [place], [place] [phone] Sarah Santa [address] [place], [place] [phone] documented as of this encounter Visit Diagnoses Diagnosis Mild depression Depressive disorder, not elsewhere classified documented in this encounter Additional Health Concerns Assessment Noted Time PHQ-9 Depression Total Score: 6 12/07/19 23 1:23 PM EDT documented as of this encounter Care Teams Guide Winder Relationship Specialty Start Date End Date Deepti Lowry MD [address] [place] [address] [phone] PCP - General Family Medicine 07/25/20 documented as of this encounter
== END 2024-07-15 09:41 | disposition home or self-care (01) ==
LOC: HO.MAMMO 09:40
PROVIDERS: Visit Provider Internal Medicine
DX: Z12.31 Encounter for screening mammogram for malignant neoplasm of breast (principal)
CPT/HCPCS: 77063; 77067

== ENCOUNTER → 2024-07-15 10:00 | Outpatient (BNV) | payer OTHER, SELFPAY | PROVIDERS: Visit Provider Internal Medicine | DX: Z12.31 Encounter for screening mammogram for malignant neoplasm of breast (principal) | CPT/HCPCS: 77063; 77067 ==

== ENCOUNTER 2025-01-05 13:16 | Outpatient (AMB) | payer OTHER, SELFPAY ==
--- NOTE | 2025-01-05 13:20 | A.OFFVIS_ITS ---
Vital Signs 01/05/25 13:23 Height 5 ft 7 in Weight 167 lb 1.766 oz BMI 26.2 BP 117/62 Blood Pressure Location Rt brachial Position Sitting Pulse 80 Intake Visit Reasons: f/u Abdominal Bloating r/s 11/06/24, 12/08/24 Intake Note: Pamela presents to in office follow up of abdominal bloating. CC: Patient reports that she has abd bloating and constipation sometimes. 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: Yes Carpet Installer Helper Language: Citizen Of [place] Accompanied by: Self / Same As Patient Allergies No Known Allergies (No Known Allergies*) Allergy (Verified 01/05/25 13:26) HPI HPI f/u Abdominal Bloating r/s 11/06/24, 12/08/24: Details: Assessment & Plan (1) GERD (gastroesophageal reflux disease): Code(s): K21.9 - Gastro-esophageal reflux disease without esophagitis Category: Medical (2) Constipation: Code(s): K59.00 - Constipation, unspecified Category: Medical (3) Abdominal bloating: Code(s): R14.0 - Abdominal distension (gaseous) Category: Medical Plan Citizen Of [place] #Stalin Live She continues to do well on her famotidine, simethicone and bisacodyl. At time she has no complaints and is happy with her GI regimen. Return office visit in 6 month TODAY'S VISIT Citizen [place] # PFSH Surgical History (Updated 09/27/23 @ 15:12 by JOYCELYN Mccray) Hx of colonoscopy Hx of tonsillectomy Family History Father Family hx of prostate cancer Hx of cardiac arrest Mother Hx of primary hypertension Social History Alcohol intake: current Alcohol intake frequency: holidays/special occasions only Alcohol type: wine Patient Tobacco Use Status: Never used Tobacco Review of Systems Const Denies fatigue, Denies fever(s), Denies night sweats, Denies poor appetite and Denies weight loss Eyes Details: glasses Reports requires corrective lenses ENT Reports Normal hearing present, Denies dental pain, Denies dysphagia, Denies hearing loss, Denies mouth pain, Denies odynophagia, Denies throat swelling, Denies tongue swelling and Reports other (Dentition adequate) Card Reports no additional complaints Resp Reports no additional complaints GI Details: Denies abdominal pain, Denies melena, Reports bloating, Denies hematochezia, Reports constipation, Denies GI cramping, Denies dysphagia, Denies excessive flatus, Denies early satiety, Reports heartburn, Denies diarrhea, Denies nausea, Denies odynophagia, Denies vomiting and Denies hematemesis Skin/Breast Denies pruritus, Denies lesions, Denies rash and Denies jaundice Neuro Reports Normal hearing present and Denies Abnormal speech present Endo Denies fatigue Aller/Immun Denies throat swelling and Denies tongue swelling Physical Exam Vital Signs: Last Vital Signs Pulse 80 01/05/25 13:23 BP 117/62 01/05/25 13:23 BMI result Body Mass Index 26.2 Const General: cooperative, no acute distress, well developed and well groomed Nutritional Appearance: average body habitus and well nourished Orientation/consciousness: oriented to person, oriented to place and oriented to time Limitations: language barrier HEENT Head: Yes normocephalic and Yes atraumatic Eyes General: appearance normal, both eyes and all related structures Pupils: Equal, round and reactive pupils present Neck Neck: Yes normal visual inspection and Yes no lymphadenopathy Thyroid: Thyroid normal Resp Effort & Inspection: normal respiratory effort and able to speak in complete sentences Auscultation: clear to auscultation bilaterally Cardio Rate: regular rate Rhythm: regular rhythm Heart sounds: Normal, physiologic split S2 sound present Peripheral pulses: radial pulses present and posterior tibial pulses present GI Inspection: No distended and No Abdominal panniculus present Palpation (GI): Soft to palpation, nontender, no guarding, not rigid and No hepatosplenomegaly present Percussion: Yes normal to percussion Auscultation: normal bowel sounds Rectal Exam - Female: deferred Skin General skin exam: no rashes or lesions noted, turgor normal, skin not dry, no jaundice, No spider nevi and no striae Rashes: no rashes Nails: normal Neuro General: oriented to person, oriented to place and oriented to time Cranial nerves: Yes Equal, round and reactive pupils present and Yes Normal hearing present Speech: No Abnormal speech present Extrem General: Yes normal to inspection, No clubbing, No cyanosis and No edema Psych Appearance: grossly normal and well kempt Mental Status: mental status grossly normal Speech and movement: Normal speech and movement present Affect: normal affect Attitude: cooperative Thought process: Normal thought process present and not confabulating Thought content: Normal thought content present Insight: Good insight present (Psych) Judgement: Good judgement present (Psych) Assessment & Plan Assessment & Plan (1) GERD (gastroesophageal reflux disease): Code(s): K21.9 - Gastro-esophageal reflux disease without esophagitis Category: Medical (2) Constipation: Code(s): K59.00 - Constipation, unspecified Category: Medical (3) Abdominal bloating: Code(s): R14.0 - Abdominal distension (gaseous) Category: Medical Plan Citizen Of [place] #V live She continues to do well on her famotidine, simethicone and bisacodyl. - The patient is a 64-year-old female presenting with gastrointestinal bloating. - The patient experiences bloating and requires medication. She recalled a prior prescription for simethicone but has not been receiving it, possibly due to insurance coverage issues. I advise her if it is not covered it can be obtained inexpensively [id number] and write it down for her so that she can look for it. - The patient described intermittent constipation, with occurrences fluctuating between manageable and problematic. - She reported no new health issues since the prior consultation. With this she feels that her symptoms will be well controlled and she opts for a six-month follow-up. She can always call me if the simethicone is not addressing the issue. Return office visit in 6 months Medications: Refilled simethicone after meals 180 mg PO QID 120 caps 6RF 30 days R14.0 - Abdominal distension (gaseous) bisacodyl (Dulcolax (bisacodyl)) 10 mg (2 x 5 mg) PO BEDTIME 60 tabs 6RF 30 days K21.9 - Gastro-esophageal reflux disease without esophagitis, K59.00 - Constipation, unspecified famotidine 20 mg PO DAILY 30 tabs 6RF 30 days K21.9 - Gastro-esophageal reflux disease without esophagitis Coding Level of Care Code Est Pt Level 3 (86332) Diagnoses GERD (gastroesophageal reflux disease) K21.9 Constipation K59.00 Abdominal bloating R14.0
[2025-01-05 13:23] VITALS: BP 117/62; PULSE 80; BMI 26.2
--- OUTSIDE RECORDS SUMMARY | 2025-01-05 17:10 | XMS_ITS | Encounter Summary ---
Author Organization [employer] [facility] Address [address] [facility] 7t [place] [address] Care Team Providers Care Rn Military Name Role Phone Deepti Lowry MD Primary Care Provide r Reason for Visit * Reason Comments Med Refill Encounter Details Date Type Department Care Team ([facility] Contact Info) Description 06/29/2022 Refill [facility] MEDICINE [address] [place] [address] [phone] Roosevelt Ware MD [address] [place] [address] [phone] Major depressive disorder, remission status unspecified, unspecified [...] Department Care Team (Late Contact Info) Description 01/11/2025 1:45 PM EDT Immunization [facility] MEDICINE [address] [place] [address] [phone] 01/12/2025 3:00 PM EDT Office Visit [facility] [address] [place], [place] [phone] Yogesh Connelly, BDS 91 [place], [place] [phone] 03/04/2025 11:00 AM EST Office Visit [facility] MEDICINE [address] [place], [place] [phone] Deepti Lowry MD [address] [place] [address] [phone] documented as of this encounter Visit Diagnoses Diagnosis Major depressive disorder, remission status unspecified, unspecified whether recurrent documented in this encounter Care Teams Rn Military Relationship Specialty Start Date End Date Deepti Lowry MD [address] [place] [address] [phone] PCP - General Family Medicine 07/25/20 documented as of this encounter
--- OUTSIDE RECORDS SUMMARY | 2025-01-05 17:10 | XMS_ITS | Encounter Summary ---
Author Organization [employer] [facility] Address [address] [place] [address] 7 [place] [address] Care Team Providers Care Airset Caster Name Role Phone Deepti Lowry MD Primary Care Provide r Encounter Details Date Type Department Care Team (Latest Contact Info) Description 10/01/2018 Abstract [facility] CONVERSIONS Dental, Provider, DDS Social History Tobacco [...] Care Team (Late st Contact Info) Description 01/11/2025 1:45 PM EDT Immunization [facility] MEDICINE [address] [place] [phone] 01/12/2025 3:00 PM EDT Office Visit [facility] [address] [place] [phone] Yogesh Connelly, BDS [address] [place] [address] [phone] 03/04/2025 11:00 AM EST Office Visit [facility] MED[facility]INE [address] [place] [phone] Deepti Lowry MD [address] [place] [phone] documented as of this encounter Visit Diagnoses Not on filedocumented in this encounter Care Teams Airset Caster Relationship Specialty Start Date End Date Deepti Lowry MD 230 [place] [phone] PCP - General Family Medicine 07/25/20 documented as of this encounter
--- OUTSIDE RECORDS SUMMARY | 2025-01-05 17:10 | XMS_ITS | Encounter Summary ---
Author Organization [employer] Address [address] [facility] 7t [place] [address] Care Team Providers Care Program Coordinator Name Role Phone Deepti Lowry MD Primary Care Provide r Reason for Visit * Reason Comments Med Refill Encounter Details Date Type Department Care Team ([facility] st Contact Info) Description 12/21/2023 Refill [facility] MEDICINE 230 [place], [place] [phone] Deepti Lowry MD 230 [place], [place] [phone] Mild depression Social History Tobacco Use Types [...] Info) Description 01/11/2025 1:45 PM EDT Immunization [facility] MEDICINE [address] [place] [phone] 01/12/2025 3:00 PM EDT Office Visit [facility] [address] [place] [address] Yogesh Connelly, BDS 91 [place], [place] [phone] 03/04/2025 11:00 AM EST Office Visit [facility] MEDICINE [address] [place] [phone] Deepti Lowry MD [address] [place] [phone] documented as of this encounter Visit Diagnoses Diagnosis Mild depression Depressive disorder, not elsewhere classified documented in this encounter Additional Health Concerns Assessment Noted Time PHQ-9 Depression Total Score: 6 12/07/19 23 1:23 PM EDT documented as of this encounter Care Teams Program Coordinator Relationship Specialty Start Date End Date Deepti Lowry MD [address] [place] [address] [phone] PCP - General Family Medicine 07/25/20 documented as of this encounter
--- OUTSIDE RECORDS SUMMARY | 2025-01-05 17:10 | XMS_ITS | Encounter Summary ---
Author Organization [employer] Address [address] [facility] [address] 7[address] [place] [address] Care Team Providers Care Belt Operator Name Role Phone Deepti Lowry MD Primary Care Provide r Reason for Visit * Reason Comments Med Refill Encounter Details Date Type Department Care Team ([facility] st Contact Info) Description 01/06/2024 Refill [facility] MEDICINE 230 [place], [place] [phone] Deepti Lowry MD 230 [place], [place] [phone] Mild depression Social History Tobacco Use Types [...] Info) Description 01/11/2025 1:45 PM EDT Immunization [facility] MEDICINE [address] [place] [phone] 01/12/2025 3:00 PM EDT Office Visit [facility] [address] [place] [address] Yogesh Connelly, BDS 91 [place], [place] [phone] 03/04/2025 11:00 AM EST Office Visit [facility] MEDICINE [address] [place] [phone] Deepti Lowry MD [address] [place] [address] [phone] documented as of this encounter Visit Diagnoses Diagnosis Mild depression Depressive disorder, not elsewhere classified documented in this encounter Additional Health Concerns Assessment Noted Time PHQ-9 Depression Total Score: 6 12/07/19 23 1:23 PM EDT documented as of this encounter Care Teams Belt Operator Relationship Specialty Start Date End Date Deepti Lowry MD [address] [place] [address] [phone] PCP - General Family Medicine 07/25/20 documented as of this encounter
--- OUTSIDE RECORDS SUMMARY | 2025-01-05 17:10 | XMS_ITS | Encounter Summary ---
Author Organization [employer] Address [address] [facility] [address] 7t [place] [address] Care Team Providers Care Directory Compiler Name Role Phone Deepti Lowry MD Primary Care Provide r Reason for Visit * Reason Comments Med Refill Encounter Details Date Type Department Care Team ([facility] st Contact Info) Description 08/24/2024 Refill [facility] MEDICINE 230 [place], [place] [phone] Claudia Ko MD 230 [place], [place] [phone] Mild depression Social History Tobacco Use Types Packs/Day Years Used Date Smoking Tobacco: Never Passive Smoke Exposure: Never Smokeless Tobacco: Never Alcohol Use Standard Drinks/Week Comments Never 0 (1 standard drink = 0.6 oz pur e alcohol) Depression Answer Date Recorded Patient Health Questionnaire-9 Score 0 08/27/2024 Patient Health Questionnaire-9 Score 0 08/27/2024 Last PHQ-9: Questionnaire Data Not on file 0 08/27/2024 Housing Stability Answer Date Recorded What is [...] Answer Date Recorded Patient Health Questionnaire-2 Score 0 08/27/2024 Comments Unknown Sex and Gender Information Value Date Recorded Sex Assigned at Female 02/19/2022 10:32 AM EDT Legal Sex Female 10:32 AM EDT Gender Identity Female 02/19/2022 10:32 AM EDT Sexual Orientation Straight 02/19/2022 10 :32 AM EDT documented as of this encounter Functional Status * Over the past 2 weeks, how often have you been bothered by any of the following problems? Question Answer Date of Assessment Author Patient Health Questionnaire-2 Score 0 08/27/2024 1:48 PM EDT Sharifa Villaseñor MA * Little interest or pleasure in doing things Answer Date of Assessment Author Not at all 08/27/2024 1:48 PM EDT Sharifa Levy MA * Feeling down, depressed, or hopeless Answer Date of Assessment Author Not at all 08/27/2024 1:48 PM EDT Sharifa Levy MA * Trouble falling or staying asleep, or sleeping too much Answer Date of Assessment Author Not at all 08/27/2024 1:48 PM EDT Sharifa Levy MA * Feeling tired or having little energy Answer Date of Assessment Author Not at all 08/27/2024 1:48 PM EDT Sharifa Levy MA * Poor appetite or overeating Answer Date of Assessment Author Not at all 08/27/2024 1:48 PM EDT Sharifa Levy MA * Feeling bad about yourself - or that you are a failure or have let yourself or your family down Answer Date of Assessment Author Not at all 08/27/2024 1:48 PM EDT Sharifa Levy MA * Trouble concentrating on things, such as reading the newspaper or watching television Answer Date of Assessment Author Not at all 08/27/2024 1:48 PM EDT Sharifa Levy MA * Moving or speaking so slowly that other people could have noticed? Or the opposite - being so fidgety or restless that you have been moving around a lot more than usual. Answer Date of Assessment Author Not at all 08/27/2024 1:48 PM EDT Sharifa Levy MA * Thoughts that you would be better off or hurting yourself in some way Answer Date of Assessment Author Not at all 08/27/2024 1:48 PM EDT Sharifa Levy MA * Patient Health Questionnaire-9 Score Answer Date of Assessment Author 0 08/27/2024 1:48 PM EDT Sharifa Levy MA documented as of this encounter Plan of Treatment Upcoming Encounters Date Type Department Care Team (Late st Contact Info) Description 01/11/2025 1:45 PM EDT Immunization [facility] [address] [place] [phone] 01/12/2025 3:00 PM EDT Office Visit [facility] [address] [place] [address] Yogesh Connelly, BDS 91 [place], [place] [phone] 03/04/2025 11:00 AM EST Office Visit [facility] [address] [place] [address] [phone] Deepti Lowry MD [address] [place] [address] [phone] documented as of this encounter Visit Diagnoses Diagnosis Mild depression Depressive disorder, not elsewhere classified documented in this encounter Additional Health Concerns Assessment Noted Time PHQ-9 Depression Total Score: 6 12/07/19 23 1:23 PM EDT documented as of this encounter Care Teams Directory Compiler Relationship Specialty Start Date End Date Deepti Lowry MD [address] [place] [phone] PCP - General Family Medicine 07/25/20 documented as of this encounter
--- OUTSIDE RECORDS SUMMARY | 2025-01-05 17:10 | XMS_ITS | Encounter Summary ---
Author Organization [employer] [facility] Address [address] [place] [address] 7 [place] [address] Care Team Providers Care Manager Division Name Role Phone Deepti Lowry MD Primary Care Provide r Encounter Details Date Type Department Care Team (Latest Contact Info) Description 06/11/2018 Abstract [facility] CONVERSIONS Dental, Provider, DDS Social History [...] Info) Description 01/11/2025 1:45 PM EDT Immunization [facility] MEDICINE [address] [place] [phone] 01/12/2025 3:00 PM EDT Office Visit [facility] [address] [place] [phone] Yogesh Connelly, BDS [address] [place] [address] [phone] 03/04/2025 11:00 AM EST Office Visit [facility] MEDICINE [address] [place] [phone] Deepti Lowry MD [address] [place] [phone] documented as of this encounter Visit Diagnoses Not on filedocumented in this encounter Care Teams Manager Division Relationship Specialty Start Date End Date Deepti Lowry MD [address] [place] [phone] PCP - General Family Medicine 07/25/20 documented as of this encounter
--- OUTSIDE RECORDS SUMMARY | 2025-01-05 17:10 | XMS_ITS | Encounter Summary ---
Author Organization [employer] Address [address] [facility] 7t [place] [address] Care Team Providers Care Aviation Ordnance Officer Name Role Phone Deepti Lowry MD Primary Care Provide r Reason for Visit * Reason Comments Med Refill Encounter Details Date Type Department Care Team ([facility] st Contact Info) Description 12/17/2023 Refill [facility] MEDICINE 230 [place], [place] [phone] Deepti Lowry MD 230 [place], [place] [phone] Mild depression Social History Tobacco Use Types [...] Info) Description 01/11/2025 1:45 PM EDT Immunization [facility] MEDICINE [address] [place] [phone] 01/12/2025 3:00 PM EDT Office Visit [facility] [address] [place] [address] Yogesh Connelly, BDS 91 [place], [place] [phone] 03/04/2025 11:00 AM EST Office Visit [facility] MEDICINE [address] [place] [address] [phone] Deepti Lowry MD [address] [place] [phone] documented as of this encounter Visit Diagnoses Diagnosis Mild depression Depressive disorder, not elsewhere classified documented in this encounter Additional Health Concerns Assessment Noted Time PHQ-9 Depression Total Score: 6 12/07/19 23 1:23 PM EDT documented as of this encounter Care Teams Aviation Ordnance Officer Relationship Specialty Start Date End Date Deepti Lowry MD [address] [place] [address] [phone] PCP - General Family Medicine 07/25/20 documented as of this encounter
--- OUTSIDE RECORDS SUMMARY | 2025-01-05 17:10 | XMS_ITS | Encounter Summary ---
Author Organization [employer] Address [address] [place] [address] 7 [place] [address] Care Team Providers Care Bleach Machine Operator Name Role Phone Deepti Lowry MD Primary Care Provide r Encounter Details Date Type Department Care Team (Latest Contact Info) Description 03/03/2021 Abstract [facility] CONVERSIONS Dental, Provider, DDS Social History [...] Info) Description 01/11/2025 1:45 PM EDT Immunization [facility] MEDICINE [address] [place] [address] [phone] 01/12/2025 3:00 PM EDT Office Visit [facility] [address] [place] [phone] Yogesh Connelly, BDS [address] [place] [address] [phone] 03/04/2025 11:00 AM EST Office Visit [facility] MEDICINE [address] [place] [phone] Deepti Lowry MD [address] [place] [address] 24163 documented as of this encounter Visit Diagnoses Not on filedocumented in this encounter Care Teams Bleach Machine Operator Relationship Specialty Start Date End Date Deepti Lowry MD 230 [place] [address] PCP - General Family Medicine 07/25/20 documented as of this encounter
--- OUTSIDE RECORDS SUMMARY | 2025-01-05 17:10 | XMS_ITS | Clinical Summary ---
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 Name Role Phone Deepti Lowry [...] MEALS 90 capsule 2 09/18/19 24 Active sertraline (Zoloft) 25 MG tabletIndicatio ns:Mild depression TAKE 1 TABLET(25 MG) BY MOUTH IN THE MORNING 90 tablet 1 08/28/19 25 Active metFORMIN (Glucophage) 500 MG tabletIndicatio ns:Prediabetes TAKE 1 TABLET BY MOUTH WITH BREAKFAST AND WITH EVENING MEAL 180 tablet 2 12/19/19 25 Active famotidine (Pepcid) 20 MG tabletIndicatio ns:Gastroesopha geal reflux disease, unspecified whether esophagitis present TAKE 1 TABLET(20 MG) BY MOUTH DAILY 60 tablet 3 12/19/19 25 Active metFORMIN (Glucophage) 500 MG tabletIndicatio ns:Prediabetes Take 1 tablet (500 mg) by mouth with breakfast and with evening meal. 180 tablet 2 02/25/20 24 025 Discontinued famotidine (Pepcid) 20 MG tabletIndicatio ns:Gastroesopha geal reflux disease, unspecified whether esophagitis present Take 1 tablet (20 mg) by mouth Once per day. 60 tablet 3 05/29/19 25 025 Discontinued Active Problems Problem Noted Date Diagnosed Date Face lesion 02/25/2024 Seasonal allergies 09/18/2023 Colon cancer screening 04/04/2023 GERD (gastroesophageal reflux disease) Assessment & Plan (08/27/2024 4:12 PM EDT): I advise patient to avoid NSAIDs, spicy and acid food, I advise to eat at the same time every day, I advise to elevate the head of the bed and take medications as prescribe Assessment & Plan (06/01/2024 5:06 PM EST): [...] deficiency 10/16/2022 Prediabetes 10/16/2022 Assessment & Plan (08/27/2024 4:12 PM EDT): A1c checked today Counseling about healthy diet and exercise done Assessment & Plan (06/01/2024 5:07 PM EST): [...] (low calorie) and cardiovascular exercise Encounter for Papanicolalizbeth s mear for cervical cancer screening 10/16/2022 Assessment & Plan (12/06/2022 2:12 PM EDT): Please see HPI Chronic pain of right knee 10/16/2022 Assessment & Plan (04/04/2023 4:50 PM EST): Acetaminophen PRN Anxiety 03/13/2017 Assessment & Plan (02/25/2024 2:16 PM EST): Counseling done Sertraline refilled Numbness of hand 03/13/2017 Depressive disorder 02/08/2017 Assessment & Plan (08/27/2024 4:13 PM EDT): Stable C/w sertraline 25mg daily Assessment & Plan (04/04/2023 4:51 PM EST): Declines referral to therapist C/w sertraline 25mg daily Foot pain 02/08/2017 Encounters Date Type Department Care Team Description 12/18/2024 Refill [facility] [address] [place] [phone] Deepti Lowry MD Prediabetes; Gastroesophageal reflux disease, unspecified whether esophagitis present from Last 3 Months Immunizations Immunization Administration Dates Next Due Influenza injectable quadriv [...] Sign Reading Time Taken Comments Blood Pressure 110/80 09/23/2024 9:51 AM EDT Pulse 75 08/27/2024 1:39 PM EDT Temperature 36.7 C (98 F) 08/27/2024 1:39 PM EDT Respiratory Rate 20 08/27/2024 1:39 PM EDT Oxygen Saturation 97% 08/27/2024 1:39 PM EDT Inhaled Oxygen Concentration - - Weight 79.4 kg (175 lb) 08/27/2024 1:39 PM EDT Height 167.6 cm (5' 6 ) 08/27/2024 1:39 PM EDT Body Mass Index 28.25 08/27/2024 1:39 PM EDT Plan of Treatment Upcoming Encounters Date Type Department Care Team (Late st Contact Info) Description 01/11/2025 1:45 PM EDT Immunization [facility] [address] [place] [phone] 01/12/2025 3:00 PM EDT Office Visit [facility] [address] [place] [phone] Yogesh Connelly, BDS [address] [place] [address] [phone] 03/04/2025 11:00 AM EST Office Visit [facility] [address] [place] [phone] Deepti Lowry MD [address] [place] [phone] Health Maintenance Due Date Last Done Comments CT Colonography 1960 Colonoscopy 1960 FIT 1960 HIV Screening 1960 Sigmoidoscopy 1960 Disability Screening 1962 Alcohol/Substance Use Screening 1974 Hepatitis C Screening 1980 Dental X-Ray: Full Mouth 03/04/2024 03/03/2021, 12/21 FOBT 05/22/2024 05/22/2023 SDOH Screening 09/05/2024 09/06/2023 Diabetes: Hemoglobin A1C 11/27/2024 025, 02/25/2024, 09/18/2023, Additional history exists Influenza Vaccine (#1) 2024 , 02/18/2023, 01/17/2022, Additional history exists Dental X-Ray: Bitewings 03/25/2025 03/24/20 24, 11/06/2022, 03/03/2021, Additional history exists Dental Oral Exam 03/26/2025 09/23/2024, 06/2023, 11/06/2022, Additional history exists Dental Prophylaxis 03/26/2025 09/23/2024, 1 05/25/2023, 06/17/2023, Additional history exists Mammogram 07/15/2025 07/15/2024, 06/20, 06/27/2022, Additional history exists Depression Screening 08/27/2025 08/27/2024, 08/28/19 25 Tobacco Screening 09/23/2025 09/23/2024 Pap Smear 10/16/2025 10/16/2022, 09/21, 10/16/2022 Colorectal Cancer Screening 05/22/2026 FIT DNA/Cologuard 05/22/2026 05/22/2023 Cervical Cancer Screening 10/17/2027 HPV/Cotest 10/17/2027 10/16/2022, 09/21, 04/03/2017 DTaP/Tdap/Td Vaccines (2 - Td or Tdap) 05/29/2034 05/29/2024, 02/08/2017, 02/08/2017 Zoster Vaccines Completed 03/23/2020, 01/21/2020 RSV Patients and Patients Aged 60 years or older Completed 04/08/2023 COVID-19 Vaccine Completed 01/09/2024, , 01/23/2022, Additional history exists Pneumococcal Vaccine: 50+ Years [...] patient's age to complete this topic Meningococcal B Vaccine Aged Out No l onger eligible based on patient's age to complete [...] Procedure Name Priority Date/Time Associated Diagnosis Comments PROPHYLAXIS - ADULT Routine 09/23/2024 1 0:00 AM EDT PERIODIC ORAL EVALUATION - ESTABLISHED PATIENT Routine 09/23/2024 10:00 AM EDT POCT GLYCATED HEMOGLOBIN, TOTAL Routine 08/27/2024 1:52 PM EDT Prediabetes BI MAMMOGRAM SCREENING TOMOSYNTHESIS BILATERAL Routine 07/15/2024 10:00 AM EDT BITEWINGS - 4 RADIOGRAPHIC IMAGES Routine 03/24/2024 9:00 AM EST LAB COLOGUARD COLON CANCER SCREEN Routine 05/22/2023 8:00 AM EST Colon cancer screening IMAGE-GUIDED PAP W/AGE BASED SCR,W/CT/NG/TRICH Routine 10/16/2022 10:25 AM EDT Encounter for Papanicolaou smear for cervical cancer screening INTRAORAL - COMPLETE SERIES OF RADIOGRAPHIC IMAGES Routine 03/03/2021 12:00 AM EST from Last 3 Months or Most Recently Relevant to Health Maintenance Results * POCT HGB A1C (08/27/2024 1:52 PM EDT) Hemoglobin A1C 5.7 4.0 - 6.0 % Blood 08/27/2024 1:52 PM EDT Deepti Lainez MD POINT OF CARE TEST EN TER/EDIT ORDERABLES Final Result * BI Mammogram Screening Tomosynthesis Bilateral (07/15/2024 10:00 AM EDT) Anatomical Region Laterality Modality Breast Bilateral Mammography 07/15/2024 10:0 0 AM EDT Narrative 07/21/2024 2:18 PM EDT [facility]'[address] [place], [place] [address] Mammography Report Signed Patient: Pamela Rock MR#: [id number] 0 : 1960 Acct:[id number] Age/Sex: 64 / F ADM Date: 07/15/24 Loc: HO.MAMMO Attending Dr: Deepti Lainez MD Ordering Physician: Deepti Lowry MD Results: 1Negative Date of Service: 07/15/24 Follow Up: 1 Year From [facility] Mammogram Procedure(s): MM tomosynthesis screening BI Accession Number(s): [id number] cc: Deepti Lowry MD EXAMINATION: MM SCREENING DIGITAL BREAST TOMOSYNTHESIS, BILATERAL CLINICAL INFORMATION: Screening. Asymptomatic. COMPARISON: Mammography: Comparison is made with available priors TECHNIQUE: Digital breast mammography with tomosynthesis is performed in both the craniocaudal and mediolateral oblique views along with computer-aided detection (CAD). FINDINGS: There are scattered areas of fibroglandular [...] target due date for their next mammogram. Electronically signed by: Sindy Spicer DO 07/21/2024 02:15 PM EDT Dictated By: Sindy Spicer DO Signed By: <Electronically signed by Sindy Spicer DO in OV> 07/21/24 1415 DD/ 1000 TD/TT: 07/15/24 1020 Reefer Engineer: Procedure Note Donotuseinterpreter, Image - [facility] [address] [place] [address] Mammography Report Signed Patient: Pamela Rock CMR#: [id number] 0 : 1960Acct:[id number] Age/Sex: 64 / FADM Date: 07/15/24 Loc: HO.MAMMO Attending Dr: Deepti Lainez MD Ordering Physician: Deepti Lowry MDResults: 1Negative Date of Service: 07/15/24Follow Up: 1 Year From Orig inal Mammogram Procedure(s): MM tomosynthesis screening BI Accession Number(s): [id number] cc: Deepti Lowry MD EXAMINATION: MM SCREENING DIGITAL BREAST TOMOSYNTHESIS, BILATERAL CLINICAL INFORMATION: Screening. Asymptomatic. COMPARISON: Mammography: Comparison is made with available priors TECHNIQUE: Digital breast mammography with tomosynthesis is performed in both the craniocaudal and mediolateral oblique views along with computer-aided detection (CAD). FINDINGS: There are scattered areas of fibroglandular [...] target due date for their next mammogram. Electronically signed by: Sindy Spicer DO 07/21/2024 02:15 PM EDT RP Dictated By: Sindy Spicer DO Signed By: <Electronically signed by Sindy Spicer DO in OV> 07/21/24 1415 DD/ 1000 TD/TT: 07/15/24 1020 Reefer Engineer: Deepti Lainez MD IMG BI PROCEDURES Fin al Result * Cologuard?? colon cancer screening (05/22/2023 8:00 AM EST) Cologuard Result Negative Negative 05/31/19 10:09 AM EST [facility] (CLIA #:[id number]) Comment: NEGATIVE TEST RESULT. A negative Cologuard result indicates a low likelihood that a colorectal cancer (CRC) or advanced adenoma (adenomatous polyps with more advanced pre-malignant features) is present. The chance that a person with a negative Cologuard test has a colorectal cancer is less than 1 in 1500 (negative predictive value >99.9%) or has an advanced adenoma is less than 5.3% (negative predictive value 94.7%). These data are based on a prospective cross-sectional study of 10,000 individuals at average risk for colorectal cancer who were screened with both Cologuard and colonoscopy. (Marlee Howard al, N Engl J Med 2014;370(14):7127-2483) The normal value (reference range) for this assay is negative. COLOGUARD RE-SCREENING RECOMMENDATION: Periodic colorectal cancer screening is an important part of preventive healthcare for asymptomatic individuals at average risk for colorectal cancer. Following a negative Cologuard result, the [place] [employer] and U.S. Multi-Society Task Force screening guidelines recommend a Cologuard re-screening interval of 3 years. References: [place] [employer] Guideline for Colorectal Cancer Screening: https://www.cancer.org/cancer/uwwrm-hvjwdt-ajrekx/yyuneyyws-saiaukfxk-gjbwhif/ac s-rec ommendations.html.; Emmanuel DK, Ave CR, Manasa JONES, Colorectal Cancer Screening: Recommendations for Physicians and Patients from the U.S. Multi-Society Task Force on Colorectal Cancer Screening , Am J Gastroenterology 2017; 112:4099-9933. TEST DESCRIPTION: Composite algorithmic analysis of stool DNA-biomarkers with hemoglobin immunoassay. Quantitative values of individual biomarkers are not [...] screened with both Cologuard and colonoscopy. (Marlee León. et al, N Engl J Med 2014;370(14):2546-5919.) Cologuard may produce a false negative or false positive result (no colorectal cancer or precancerous polyp present at colonoscopy follow up). A negative Cologuard test result does not guarantee the absence of CRC or advanced adenoma (pre-cancer). The current Cologuard screening interval is every 3 years. ([place] [employer] and U.S. Multi-Society Task Force). Cologuard performance data in a 10,000 patient pivotal study using colonoscopy as the reference method can be accessed at the following location: www.Videoflot.com/results. Additional description of the Cologuard test process, warnings and precautions can be found at www.Sensr.netogBUSINESS OWNERS [email or web address].com. Stool specimen (specimen) 05/22/2023 8:00 AM EST 05/23/2023 10:50 AM EST us Deepti Lainez MD LAB MOLECULAR DIAGNOS TICS ORDERABLES Final Result [facility] (CLIA #:[id number]) [place] [address], * Image-Guided Pap with Age-Based Screening??with CT/NG,??Trichomonas (10/16/2022 10:25 AM EDT) Comment [facility] Comment: This order for age-based cervical cancer and STI screening follows ACOG guidelines(PB 168, 140, WVH184). See individual assays for performing site location. Clinical Information: None given [facility] LMP: NONE GIVEN [facility] Prev. PAP: NONE GIVEN [facility] Prev. BX: NONE GIVEN [facility] SOURCE: None given [facility] Statement Of Adequacy: [facility] [employer] Comment: Satisfactory for evaluation. Endocervical/transformation zone component present. Interpretation/Re sult: Negative for intraepithelial lesion or malignancy. [facility] COMMENT: This Pap test has been evaluated with computer assisted technology. Thomas [employer] Bleach Maker: [email or web address] Comment: WAC, CT(ASCP) CT screening location: [place] [address] Review Bleach Maker: [facility] Comment: GSG, CT(ASCP) CT screening location: [place] [address] (Always Message) Que [email or web address] Comment: EXPLANATORY NOTE: The Pap is a [...] HPV nRNA E6/E7 Not Detected Not Detected [facility] Comment: Methodology: Tourist Escort-Mediated Amplification This assay detects E6/E7 viral messenger RNA (mRNA) from 14 high-risk HPV types (16,18,31,33,35,39,45,51,52,56,58,59,66,68). Cervical sources are required for HPV testing. If a vaginal source from a patient who has had a total hysterectomy with removal of cervix was submitted, please contact the testing laboratory for alternative testing options. For additional information, please refer to http://BitGo.Boni/faq/ZQF276p1 (This link if provided for information/ educational purposes only.) Chlamydia trachomatis RNA, TMA, Urogenital NOT DETECTED NOT DETECTED [facility] Neisseria gonorrhoeae RNA, TMA, Urogenital NOT DETECTED NOT DETECTED [facility] [employer] (Always Message) [facility] Comment: The analytical performance characteristics of this assay, when used to test SurePath(TM) specimens have been determined by [facility]. The modifications have not been cleared or approved by the FDA. This assay has been validated pursuant to the CLIA regulations and is used for clinical purposes. For additional information, please refer to https://Ticketbud/faq/LXO259 (This link is being provided for information/ educational purposes only.) Trichomonas vaginalis, QL, TMA, PAP Vial NOT DETECTED NOT DETECTED [employer] Comment: The analytical performance characteristics of this assay have been determined by [facility]. The modifications have not been cleared or approved by the FDA. This assay has been validated pursuant to the CLIA regulations and is used for clinical purposes. For additional information, please refer to [email or web address]/ faq/Trichomonastma (This link is being provided for information/ educational purposes only.) Pap Vial 10/16/2022 10:2 5 AM EDT 10/17/2022 2:53 AM EDT Deepti Lainez MD LAB CYTOLOGY ORDERABL ES Final Result [facility] [address], [place] [address] [facility] [place] [facility] [address] [place] [address] from Last 3 Months or Most Recently Relevant to Health Maintenance Insurance [facility] ONE CARE < 65 [facility] * Guarantor: Pamela Weaver Account Type Relation to Patient Date of Phone Billing Address Personal/Family Self 2 [facility] [place] Care 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
== END 2025-01-05 14:34 | disposition home or self-care (01) ==
LOC: HO.HGI 13:17
PROVIDERS: Visit Provider Nurse Practitioner
DX: K21.9 Gastro-esophageal reflux disease without esophagitis (principal); K59.00 Constipation, unspecified; R14.0 Abdominal distension (gaseous)
CPT/HCPCS: 99213

== ENCOUNTER → 2025-01-05 13:16 | Outpatient (BNVA) | payer OTHER, SELFPAY | PROVIDERS: Visit Provider Nurse Practitioner | DX: K21.9 Gastro-esophageal reflux disease without esophagitis (principal); R14.0 Abdominal distension (gaseous); K59.00 Constipation, unspecified | CPT/HCPCS: 99212 ==